=== PATIENT | female | born 2000 | race Caucasian/White ===

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

== ENCOUNTER 2020-04-05 13:48 | Emergency (ER) | payer OTHER ==
[~2020-04-05] VITALS: Ht 160 cm; Wt 63.2 kg
[~2020-04-05 13:48] MED LIST: IBUP-1022 PO; JUNETAB PO; MACR100C43 PO; MELA3TAB24 PO
--- OUTSIDE RECORDS SUMMARY | 2020-04-05 13:53 | CCD ---
Author Author [facility] Organization [facility] Address Unknown Phone Unavailable Care Team Providers Care Mobile Security Specialist Name Role Phone Escobar, Payalcatracho Arzola RECEIVING INSPECTOR-C Unavailable Unavailabl e Escobar, [facility] Agata Ness RECEIVING INSPECTOR-C Unavailable Unavailabl e Escobar, [facility] Agata Ness RECEIVING INSPECTOR-C Unavailable Unavailabl e Escobar, [facility] Agata ALMANZARP-C Unavailable Unavailabl e Escobar, [facility] Agata Ness LAMANZARP-C Unavailable Unavailabl e Escobar, [facility] Agata Ness RECEIVING INSPECTOR-C Unavailable Unavailabl e Escobar, [facility] Agata Arzola RECEIVING INSPECTOR-C Unavailable Unavailabl e Escobar, [facility] Agata Ness RECEIVING INSPECTOR-C Unavailable Unavailabl e Escobar, [facility] Agata Ness RECEIVING INSPECTOR-C Unavailable Unavailabl e Escobar, [facility] Agata Ness RECEIVING INSPECTOR-C Unavailable Unavailabl e Escobar, [facility] Agata Arzola RECEIVING INSPECTOR-C Unavailable Unavailabl e Escobar, [facility] Agata Arzola RECEIVING INSPECTOR-C Unavailable Unavailabl e Escobar, [facility] Agata Arzola RECEIVING INSPECTOR-C Unavailable Unavailabl e Escobar, [facility] Agata Arzola RECEIVING INSPECTOR-C Unavailable Unavailabl e Escobar, [facility] Agata Arzola RECEIVING INSPECTOR-C Unavailable Unavailabl e Escobar, Vivian Arzola RECEIVING INSPECTOR-C Unavailable Unavailabl e Escobar, Vivian Arzola RECEIVING INSPECTOR-C Unavailable Unavailabl e Escobar, Vivian Arzola RECEIVING INSPECTOR-C Unavailable Unavailabl e Escobar, Vivian Arzola RECEIVING INSPECTOR-C Unavailable Unavailabl e Escobar, Vivian Arzola RECEIVING INSPECTOR-C Unavailable Unavailabl e Escobar, Vivian Arzola RECEIVING INSPECTOR-C Unavailable Unavailabl e Escobar, Vivian Arzola RECEIVING INSPECTOR-C Unavailable Unavailabl e Escobar, Vivian Arzola RECEIVING INSPECTOR-C Unavailable Unavailabl e Escobar, Vivian Arzola RECEIVING INSPECTOR-C Unavailable Unavailabl e Escobar, Vivian Arzola RECEIVING INSPECTOR-C Unavailable Unavailabl e Escobar, Vivian Arzola RECEIVING INSPECTOR-C Unavailable Unavailabl e Escobar, Vivian Arzola RECEIVING INSPECTOR-C Unavailable Unavailabl e Escobar, Vivian Arzola RECEIVING INSPECTOR-C Unavailable Unavailabl e Escobar, Vivian Arzola RECEIVING INSPECTOR-C Unavailable Unavailabl e Escobar, Vivian Arzola RECEIVING INSPECTOR-C Unavailable Unavailabl e Escobar, Vivian Arzola RECEIVING INSPECTOR-C Unavailable Unavailabl e Escobar, Vivian Arzola RECEIVING INSPECTOR-C Unavailable Unavailabl e Re-disclosure Warning The records that you are about to access may contain information from federally-assisted alcohol or drug abuse programs. If such information is present, then the following federally mandated warning applies: This information has been disclosed to you from records protected by federal confidentiality rules (42 CFR part 2). The federal rules prohibit you from making any further disclosure of this information unless further disclosure is expressly permitted by the written consent of the person to whom it pertains or as otherwise permitted by 42 CFR part 2. A general authorization for the release of medical or other information is NOT sufficient for this purpose. The Federal rules restrict any use of the information to criminally investigate or prosecute any alcohol or drug abuse patient.The records that you are about to access may contain highly sensitive health information, the redisclosure of which is protected by Article 27-F of the [facility] Public Health law. If you continue you may have access to information: Regarding HIV / AIDS; Provided by facilities licensed or operated by the [facility] Office of Mental Health; or Provided by the [facility] Office for People With Developmental Disabilities. If such information is present, then the following [facility] mandated warning applies: This information has been disclosed to you from confidential records which are protected by state law. State law prohibits you from making any further disclosure of this information without the specific written consent of the person to whom it pertains, or as otherwise permitted by law. Any unauthorized further disclosure in violation of state law may result in a fine or prison sentence or both. A general authorization for the release of medical or other information is NOT sufficient authorization for further disc losure. Encounters Encounter Providers Location Date Indications Data Source(s ) Outpatient Attender: Ness PIZARRO 09/08/2019 11:35:0 0 AM [facility] Outpatient 03/08/2019 07:55:00 AM EST [facility] Medications Medication Brand Name Start Date Product Form Dose Route Admi nistrative Instructions Pharmacy Instructions Status Indications Reaction Description Data Source(s) 600 mg 02/23/2019 12:00:00 AM EST tablet 30 TAKE 1 TABLET BY MOUTH THREE TIMES A DAY FOR PAIN WITH FOOD TAKE 1 TABLET BY MOUTH THREE TIMES A DAY FOR PAIN WITH FOOD SOLD: 02/23/2019 [facility] 100 mg 02/23/2019 12:00:00 AM EST capsule 14 TAKE 1 CAPSULE BY MOUTH TWO TIMES A DAY TAKE 1 CAPSULE BY MOUTH TWO TIMES A DAY SOLD: 02/23/2019 [facility] Insurance Providers Payer name Policy type / Coverage type Policy ID Covered libertarian ID Covered libertarian's relationship to ross Policy Ross Plan Information [facility] [id number] SP [id number] BILL CARE MEDICAID [id number] S [id number] BILL CARE MEDICAID [id number] S [id number] O UNAVAILABLE UNAVAILA BLE ANSI-Commercial [id number] Problems, Conditions, and Diagnoses Code Display Name Description Problem Type Effective Dates Data Source(s) Z11.59 Encounter for screening for other viral diseases ENCOUNTER FOR SCREENING FOR OTHER VIRAL DISEASES Diagnosis 09/08/2019 11:35:00 AM EDT [facility] Results ID Date Data Source [id number] 12/20/2019 12:00:00 AM EDT [facility] Name Value Range Interpretation Code Description Data Keila rce(s) Supporting Document(s) SARS coronavirus 2 RNA [Presence] in Res piratory specimen by MARCO ANTONIO with probe detection [facility] and reported by [employer]. ID Date Data Source [id number] 09/10/2019 10:06:00 AM EDT [facility] Name Value Range Interpretation Code Description Data Keila rce(s) Supporting Document(s) SARS-CoV-2, MARCO ANTONIO Not Detected Not Detected [facility] Testing was performed using the yayo(R) SARS-CoV-2 test.This test was developed and its performance characteristics determinedby [employer]. This test has not been FDA cleared orapproved. This test has been authorized by FDA under an Emergency UseAuthorization (EUA). This test is only authorized for the duration oftime the declaration that circumstances exist justifying theauthorization of the emergency use of in vitro diagnostic tests fordetection of SARS-CoV-2 virus and/or diagnosis of COVID-19 infectionunder section 564(b)(1) of the Act, 21 U.S.C. 360bbb-3(b)(1), unlessthe authorization is terminated or revoked sooner.When diagnostic testing is negative, the possibility of a falsenegative result should be considered in the context of a patient'srecent exposures and the presence of clinical signs and symptomsconsistent with COVID-19. An individual without symptoms of COVID-19and who is not shedding SARS-CoV-2 virus would expect to have anegative (not detected) result in this assay. ID Date Data Source [id number] 09/08/2019 09:00:00 AM EDT [facility] Name Value Range Interpretation Code Description Data Keila rce(s) Supporting Document(s) SARS CORONAVIRUS 2 RNA [facility] This lab was ordered by [facility] nd reported by [employer]. Procedure
[2020-04-05] MEDS ORDERED: MULTTAB20 PO (14:15)
--- OUTSIDE RECORDS SUMMARY | 2020-04-05 15:47 | CCD ---
Author Author [facility] Organization [facility] Address Unknown Phone Unavailable Care Team Providers Care Student Support Counselor Name Role Phone Escobar, Payalcatracho Arzola LIGHTING ADVISER-C Unavailable Unavailabl e [facility], [facility] Agata Ness LIGHTING ADVISER-C Unavailable Unavailabl e Escobar, [facility] Agata Ness LIGHTING ADVISER-C Unavailable Unavailabl e Escobar, [facility] Agata ALMANZARP-C Unavailable Unavailabl e Escobar, [facility] Agata Ness ALMANZARP-C Unavailable Unavailabl e Escobar, [facility] Agata Ness LIGHTING ADVISER-C Unavailable Unavailabl e Escobar, [facility] Agata Arzola LIGHTING ADVISER-C Unavailable Unavailabl e Escobar, [facility] Agata Ness LIGHTING ADVISER-C Unavailable Unavailabl e Escobar, [facility] Agata Ness LIGHTING ADVISER-C Unavailable Unavailabl e Escobar, [facility] Agata Ness LIGHTING ADVISER-C Unavailable Unavailabl e Escobar, [facility] Agata Arzola LIGHTING ADVISER-C Unavailable Unavailabl e Escobar, [facility] Agata Arzola LIGHTING ADVISER-C Unavailable Unavailabl e Escobar, [facility] Agata Arzola LIGHTING ADVISER-C Unavailable Unavailabl e Escobar, [facility] Agata Arzola LIGHTING ADVISER-C Unavailable Unavailabl e Escobar, [facility] Agata Arzola LIGHTING ADVISER-C Unavailable Unavailabl e Escobar, Vivian Arzola LIGHTING ADVISER-C Unavailable Unavailabl e Escobar, Vivian Arzola LIGHTING ADVISER-C Unavailable Unavailabl e Escobar, Vivian Arzola LIGHTING ADVISER-C Unavailable Unavailabl e Escobar, Vivian Arzola LIGHTING ADVISER-C Unavailable Unavailabl e Escobar, Vivian Arzola LIGHTING ADVISER-C Unavailable Unavailabl e Escobar, Vivian Arzola LIGHTING ADVISER-C Unavailable Unavailabl e Escobar, Vivian Arzola LIGHTING ADVISER-C Unavailable Unavailabl e Escobar, Vivian Arzola LIGHTING ADVISER-C Unavailable Unavailabl e Escobar, Vivian Arzola LIGHTING ADVISER-C Unavailable Unavailabl e Escobar, Vivian Arzola LIGHTING ADVISER-C Unavailable Unavailabl e Escobar, Vivian Arzola LIGHTING ADVISER-C Unavailable Unavailabl e Escobar, Vivian Arzola LIGHTING ADVISER-C Unavailable Unavailabl e Escobar, Vivian Arzola LIGHTING ADVISER-C Unavailable Unavailabl e Escobar, Vivian Arzola LIGHTING ADVISER-C Unavailable Unavailabl e Escobar, Vivian Arzola LIGHTING ADVISER-C Unavailable Unavailabl e Escobar, Vivian Arzola LIGHTING ADVISER-C Unavailable Unavailabl e Escobar, Vivian Arzola LIGHTING ADVISER-C Unavailable Unavailabl e Re-disclosure Warning The records [...] is protected by Article 27-F of the [facility] Public Health law. If you continue you may have access to information: Regarding HIV / AIDS; Provided by facilities licensed or operated by the [facility] Office of Mental Health; or Provided by the [facility] Office for People With Developmental Disabilities. If such information is present, then the following [facility] mandated warning applies: This information has been [...] law may result in a fine or mcfp sentence or both. A general authorization for the release of medical or other information is NOT sufficient authorization for further disc losure. Encounters Encounter Providers Location Date Indications Data Source(s ) Outpatient Attender: Ness ALMANZARPAldo 09/08/2019 11:35:0 0 AM [facility] Outpatient 03/08/2019 07:55:00 AM EST [facility] relationship to ross Policy Ross Plan Information BILL [id number] SP [id number] [facility] [id number] SP [id number] BILL CARE MEDICAID [id number] S [id number] BILL CARE MEDICAID [id number] S [id number] O UNAVAILABLE UNAVAILA BLE ANSI-Commercial [id number] Problems, Conditions, and Diagnoses Code Display Name Description Problem Type Effective Dates Data Source(s) Z11.59 Encounter for screening for other viral diseases ENCOUNTER FOR SCREENING FOR OTHER VIRAL DISEASES Diagnosis 09/08/2019 11:35:00 AM EDT [facility] Results ID Date Data Source [id number] 12/20/2019 12:00:00 AM EDT [facility] Name Value Range Interpretation Code Description Data Keila rce(s) Supporting Document(s) SARS coronavirus 2 RNA [Presence] in Res piratory specimen by MARCO ANTONIO with probe detection [facility] This lab was ordered by Onesimo Brown and reported by [employer]. ID Date Data Source [id number] 09/10/2019 10:06:00 AM EDT [facility] Name Value Range Interpretation Code Description Data Keila rce(s) Supporting Document(s) SARS-CoV-2, MARCO ANTONIO Not Detected Not Detected [facility] Testing was performed using the yayo(R) SARS-CoV-2 test.This test was developed and its performance characteristics determinedby [employer]. This test has not been FDA cleared [...] in this assay. ID Date Data Source [id number] 09/08/2019 09:00:00 AM EDT [facility] Name Value Range Interpretation Code Description Data Keila rce(s) Supporting Document(s) SARS CORONAVIRUS 2 RNA [facility] This lab was ordered by [facility] nd reported by [employer]. Procedure
[2020-04-05] MEDS ORDERED: COLA100C5 PO (16:13)
[2020-04-05] MEDS ORDERED: PROC2.5C3 PR (16:13)
[2020-04-05 16:23] VITALS: BP 107/69
== END 2020-04-05 16:25 | disposition home or self-care (01) ==
LOC: M ED 13:48
DX: O22.40 Hemorrhoids in pregnancy, unspecified trimester (principal); Z91.040 Latex allergy status; Z79.899 Other long term (current) drug therapy

== ENCOUNTER → 2020-04-25 | Outpatient (REF) | payer OTHER, MEDICAID ==
[~2020-04-25] MED LIST changes: +COLA100C5 PO; +MULTTAB20 PO; +PROC2.5C3 PR
[2020-04-25 18:10] LABS: HEMATOCRIT 39.3 % (36.0-47.0); HEMOGLOBIN 13.3 g/dl (12.0-15.5); MEAN CORPUSCULAR HEMOGLOBIN 29.4 pg (27.0-33.0); MEAN CORPUSCULAR HGB CONC 33.8 g/dl (32.0-36.5); MEAN CORPUSCULAR VOLUME 86.9 fl (80.0-96.0); PLATELET COUNT, AUTOMATED 277 10^3/uL (150-450); RED BLOOD COUNT 4.52 10^6/uL (4.00-5.40); WHITE BLOOD COUNT 9.7 10^3/uL (4.0-10.0)
[2020-04-25 19:16] LABS: HCG, SERUM QUANTITATIVE 46168 MIU/ML
[2020-04-25 19:26] LABS: HEPATITIS C VIRUS ABY INDEX 0.2 INDEX (<0.8); HIV 1&2 SCREEN CENTAUR NEGATIVE (NEGATIVE)
== END ==
LOC: M LAB REF 16:28
PROVIDERS: ATTEND Advanced Practice Midwife
DX: O36.80X0 Pregnancy with inconclusive fetal viability, not applicable or unspecified (principal)

== ENCOUNTER → 2020-05-01 | Outpatient (CLI) | payer OTHER ==
--- NOTE | 2020-05-02 04:02 | REP ---
INDICATION: PREG DATING VIABILITY COMPARISON: None. FINDINGS: Single live early intrauterine is appreciated. Gestational sac with yolk sac and pole identified. [place]-rump length of 14 mm corresponds to 7 weeks 5 days gestational age with estimated date of delivery 12/13/2020. heart rate equals 126 beats per minute. No gross abnormalities are identified. IMPRESSION: Single live early intrauterine at 7 weeks 5 days gestational age. Complete anatomical assessment should be performed and 19-20 weeks. <Electronically signed by Bubba Burciaga > 05/02/20 [id number]
== END ==
LOC: M RAD 14:31
PROVIDERS: ATTEND Advanced Practice Midwife
DX: O36.80X0 Pregnancy with inconclusive fetal viability, not applicable or unspecified (principal)

== ENCOUNTER 2020-05-10 18:54 | Emergency (ER) | payer OTHER ==
[~2020-05-10] VITALS: Ht 160 cm; Wt 64.2 kg
--- OUTSIDE RECORDS SUMMARY | 2020-05-10 18:59 | CCD ---
Author Author [facility] Organization [facility] Address Unknown Phone Unavailable Care Team Providers Care Gel Coater Name Role Phone Escobar, Payalcatracho Arzola BUSINESS DEVELOPMENT ANALYST-C Unavailable Unavailabl e Escobar, [facility] Agata Ness BUSINESS DEVELOPMENT ANALYST-C Unavailable Unavailabl e Escobar, [facility] Agata Ness BUSINESS DEVELOPMENT ANALYST-C Unavailable Unavailabl e Escobar, [facility] Agata ALMANZARP-C Unavailable Unavailabl e Escobar, [facility] Agata Ness ALMANZARP-C Unavailable Unavailabl e Escobar, [facility] Agata Ness BUSINESS DEVELOPMENT ANALYST-C Unavailable Unavailabl e Escobar, [facility] Agata Arzola BUSINESS DEVELOPMENT ANALYST-C Unavailable Unavailabl e Escobar, [facility] Agata Ness BUSINESS DEVELOPMENT ANALYST-C Unavailable Unavailabl e Escobar, [facility] Agata Ness BUSINESS DEVELOPMENT ANALYST-C Unavailable Unavailabl e Escobar, [facility] Agata Ness BUSINESS DEVELOPMENT ANALYST-C Unavailable Unavailabl e Escobar, [facility] Agata Arzola BUSINESS DEVELOPMENT ANALYST-C Unavailable Unavailabl e Escobar, [facility] Agata Arzola BUSINESS DEVELOPMENT ANALYST-C Unavailable Unavailabl e Escobar, [facility] Agata Arzola BUSINESS DEVELOPMENT ANALYST-C Unavailable Unavailabl e Escobar, [facility] Agata Arzola BUSINESS DEVELOPMENT ANALYST-C Unavailable Unavailabl e Escobar, [facility] Agata Arzola BUSINESS DEVELOPMENT ANALYST-C Unavailable Unavailabl e Escobar, Vivian Arzola BUSINESS DEVELOPMENT ANALYST-C Unavailable Unavailabl e Escobar, Vivian Arzola BUSINESS DEVELOPMENT ANALYST-C Unavailable Unavailabl e Escobar, Vivian Arzola BUSINESS DEVELOPMENT ANALYST-C Unavailable Unavailabl e Escobar, Vivian Arzola BUSINESS DEVELOPMENT ANALYST-C Unavailable Unavailabl e Escobar, Vivian Arzola BUSINESS DEVELOPMENT ANALYST-C Unavailable Unavailabl e Escobar, Vivian Arzola BUSINESS DEVELOPMENT ANALYST-C Unavailable Unavailabl e Escobar, Vivian Arzola BUSINESS DEVELOPMENT ANALYST-C Unavailable Unavailabl e Escobar, Vivian Arzola BUSINESS DEVELOPMENT ANALYST-C Unavailable Unavailabl e Escobar, Vivian Arzola BUSINESS DEVELOPMENT ANALYST-C Unavailable Unavailabl e Escobar, Vivian Arzola BUSINESS DEVELOPMENT ANALYST-C Unavailable Unavailabl e Escobar, Vivian Arzola BUSINESS DEVELOPMENT ANALYST-C Unavailable Unavailabl e Escobar, Vivian Arzola BUSINESS DEVELOPMENT ANALYST-C Unavailable Unavailabl e Escobar, Vivian Arzola BUSINESS DEVELOPMENT ANALYST-C Unavailable Unavailabl e Escobar, Vivian Arzola BUSINESS DEVELOPMENT ANALYST-C Unavailable Unavailabl e Escobar, Vivian Arzola BUSINESS DEVELOPMENT ANALYST-C Unavailable Unavailabl e Escobar, Vivian Arzola BUSINESS DEVELOPMENT ANALYST-C Unavailable Unavailabl e Escobar, Vivian Arzola BUSINESS DEVELOPMENT ANALYST-C Unavailable Unavailabl e Re-disclosure Warning The records [...] is protected by Article 27-F of the [facility] Public Health law. If you continue you may have access to information: Regarding HIV / AIDS; Provided by facilities licensed or operated by the [facility] Office of Mental Health; or Provided by the [facility] Office for People With Developmental Disabilities. If such information is present, then the following [facility] mandated warning applies: This information has been [...] Indications Data Source(s ) Outpatient Attender: Ness Escobar PIZARRO 09/08/2019 11:35:0 0 AM [facility] Insurance Providers Payer name Policy type / Coverage type Policy ID Covered republican ID Covered republican's relationship to ross Policy Ross Plan Information BILL [id number] SP [id number] SP [id number] [employer] [id number] SP [id number] BILL CARE MEDICAID [id number] S [id number] BILL CARE MEDICAID [id number] S [id number] O UNAVAILABLE UNAVAILA BLE ANSI-Commercial [id number] Problems, Conditions, and Diagnoses Code Display Name Description Problem Type Effective Dates Data Source(s) Z11.59 Encounter for screening for other viral diseases ENCOUNTER FOR SCREENING FOR OTHER VIRAL DISEASES Diagnosis 09/08/2019 11:35:00 AM EDT [facility] Results ID Date Data Source [id number] 12/20/2019 12:00:00 AM EDT [facility] Name Value Range Interpretation Code Description Data Keila rce(s) Supporting Document(s) SARS coronavirus 2 RNA [Presence] in Res piratory specimen by MARCO ANTONIO with probe detection [facility] This lab was ordered by Onesimo Brown and reported by [facility]. ID Date Data Source [id number] 09/10/2019 10:06:00 AM EDT [facility] Name Value Range Interpretation Code Description Data Keila rce(s) Supporting Document(s) SARS-CoV-2, MARCO ANTONIO Not Detected Not Detected [facility] Testing was performed using the yayo(R) SARS-CoV-2 test.This test was developed and its performance characteristics determinedby [facility]. This test has not been FDA cleared [...] in this assay. ID Date Data Source [id number] 09/08/2019 09:00:00 AM EDT [facility] Name Value Range Interpretation Code Description Data Keila rce(s) Supporting Document(s) SARS CORONAVIRUS 2 RNA [facility] This lab was ordered by [facility] nd reported by [facility] [employer]. Procedure
[2020-05-10 20:28] LABS: BASO # 0.1 10^3/uL (0.0-0.2); BASO % 0.5 % (0.0-1.0); EOS # 0.3 10^3/uL (0.0-0.5); EOS % 2.1 % (0.0-3.0); HEMATOCRIT 36.2 % (36.0-47.0); HEMOGLOBIN 12.6 g/dl (12.0-15.5); LYMPH # 1.7 10^3/uL (1.5-5.0); LYMPH % 12.9 % (24.0-44.0); MEAN CORPUSCULAR HEMOGLOBIN 30.1 pg (27.0-33.0); MEAN CORPUSCULAR HGB CONC 34.8 g/dl (32.0-36.5); MEAN CORPUSCULAR VOLUME 86.6 fl (80.0-96.0); MONO # 0.9 10^3/uL (0.0-0.8); MONO % 6.8 % (2.0-8.0); NEUTROPHILS # 10.2 10^3/uL (1.5-8.5); NEUTROPHILS % 77.3 % (36.0-66.0); PLATELET COUNT, AUTOMATED 232 10^3/uL (150-450); RED BLOOD COUNT 4.18 10^6/uL (4.00-5.40); WHITE BLOOD COUNT 13.2 10^3/uL (4.0-10.0)
--- OUTSIDE RECORDS SUMMARY | 2020-05-10 20:53 | CCD ---
Author Author [facility] Organization [facility] Address Unknown Phone Unavailable Care Team Providers Care Lands Resource Manager Name Role Phone Escobar, Payalcatracho Arzola EAP CONSULTANT-C Unavailable Unavailabl e [facility], [facility] Agata Ness EAP CONSULTANT-C Unavailable Unavailabl e Escobar, [facility] Agata Ness EAP CONSULTANT-C Unavailable Unavailabl e Escobar, [facility] Agata ALMANZARP-C Unavailable Unavailabl e Escobar, [facility] Agata Ness ALMANZARP-C Unavailable Unavailabl e Escobar, [facility] Agata Ness EAP CONSULTANT-C Unavailable Unavailabl e Escobar, [facility] Agata Arzola EAP CONSULTANT-C Unavailable Unavailabl e Escobar, [facility] Agata Ness EAP CONSULTANT-C Unavailable Unavailabl e Escobar, [facility] Agata Ness EAP CONSULTANT-C Unavailable Unavailabl e Escobar, [facility] Agata Ness EAP CONSULTANT-C Unavailable Unavailabl e Escobar, [facility] Agata Arzola EAP CONSULTANT-C Unavailable Unavailabl e Escobar, [facility] Agata Arzola EAP CONSULTANT-C Unavailable Unavailabl e Escobar, [facility] Agata Arzola EAP CONSULTANT-C Unavailable Unavailabl e Escobar, [facility] Agata Arzola EAP CONSULTANT-C Unavailable Unavailabl e Escobar, [facility] Agata Arzola EAP CONSULTANT-C Unavailable Unavailabl e Escobar, Vivian Arzola EAP CONSULTANT-C Unavailable Unavailabl e Escobar, Vivian Arzola EAP CONSULTANT-C Unavailable Unavailabl e Escobar, Vivian Arzola EAP CONSULTANT-C Unavailable Unavailabl e Escobar, Vivian Arzola EAP CONSULTANT-C Unavailable Unavailabl e Escobar, Vivian Arzola EAP CONSULTANT-C Unavailable Unavailabl e Escobar, Vivian Arzola EAP CONSULTANT-C Unavailable Unavailabl e Escobar, Vivian Arzola EAP CONSULTANT-C Unavailable Unavailabl e Escobar, Vivian Arzola EAP CONSULTANT-C Unavailable Unavailabl e Escobar, Vivian Arzola EAP CONSULTANT-C Unavailable Unavailabl e Escobar, Vivian Arzola EAP CONSULTANT-C Unavailable Unavailabl e Escobar, Vivian Arzola EAP CONSULTANT-C Unavailable Unavailabl e Escobar, Vivian Arzola EAP CONSULTANT-C Unavailable Unavailabl e Escobar, Vivian Arzola EAP CONSULTANT-C Unavailable Unavailabl e Escobar, Vivian Arzola EAP CONSULTANT-C Unavailable Unavailabl e Escobar, Vivian Arzola EAP CONSULTANT-C Unavailable Unavailabl e Escobar, Vivian Arzola EAP CONSULTANT-C Unavailable Unavailabl e Escobar, Vivian Arzola EAP CONSULTANT-C Unavailable Unavailabl e Re-disclosure Warning The records [...] is protected by Article 27-F of the [facility] Public Health law. If you continue you may have access to information: Regarding HIV / AIDS; Provided by facilities licensed or operated by the [facility] Office of Mental Health; or Provided by the [facility] Office for People With Developmental Disabilities. If such information is present, then the following [facility] mandated warning applies: This information has [...] law may result in a fine or care home sentence or both. A general authorization for the release of medical or other information is NOT sufficient authorization for further disc losure. Encounters Encounter Providers Location Date Indications Data Source(s ) Outpatient Attender: Ness Escobar PIZARRO 09/08/2019 11:35:0 0 AM [facility] Insurance Providers Payer name Policy type / Coverage type Policy ID Covered green party ID Covered green party's relationship to ross Policy Ross Plan Information BILL [id number] SP [id number] EMEDNY [id number] SP [id number] NCO EPALS [id number] SP [id number] BILL CARE MEDICAID [id number] S [id number] BILL CARE MEDICAID [id number] S [id number] O UNAVAILABLE UNAVAILA BLE ANSI-Commercial [id number] Problems, Conditions, and Diagnoses Code Display Name Description Problem Type Effective Dates Data Source(s) Z11.59 Encounter for screening for other viral diseases ENCOUNTER FOR SCREENING FOR OTHER VIRAL DISEASES Diagnosis 09/08/2019 11:35:00 AM EDT [facility] Results ID Date Data Source [id number] 12/20/2019 12:00:00 AM EDT [facility] Name Value Range Interpretation Code Description Data Keila rce(s) Supporting Document(s) SARS coronavirus 2 RNA [Presence] in Res piratory specimen by MARCO ANTONIO with probe detection [facility] This lab was ordered by Onesimo Brown and reported by [facility]. ID Date Data Source [id number] 09/10/2019 10:06:00 AM EDT [facility] Name Value Range Interpretation Code Description Data Keila rce(s) Supporting Document(s) SARS-CoV-2, MARCO ANTONIO Not Detected Not Detected [facility] Testing was performed using the yayo(R) SARS-CoV-2 test.This test was developed and its performance characteristics determinedby [facility]. This test has not been FDA [...] in this assay. ID Date Data Source [id number] 09/08/2019 09:00:00 AM EDT [facility] Name Value Range Interpretation Code Description Data Keila rce(s) Supporting Document(s) SARS CORONAVIRUS 2 RNA [facility] This lab was ordered by [facility] nd reported by [id number]. Procedure
--- NOTE | 2020-05-10 20:57 | REPVR ---
PROCEDURE INFORMATION: Exam: US First Trimester, Transabdominal Exam date and time: 05/10/2020 8:26 PM Age: 19 years old Clinical indication: Lmp or gestational age (in weeks): 03/07/2021; Other: Vaginal bleeding; ; Additional info: 9 wks preg vaginal bleeding TECHNIQUE: Imaging protocol: Real-time transabdominal obstetrical ultrasound of the maternal pelvis and a first trimester , less than 14 weeks 0 days, with image documentation. COMPARISON: No relevant prior studies available. FINDINGS: Gestation: Single live intrauterine gestation. Embryonic/ heart rate: cardiac activity is detected at 167 bpm. Placenta: Adjacent subchorionic hemorrhage measuring 1.5 x 0.4 x 1.7 cm. Amniotic fluid: Amniotic fluid is normal for gestational age. BIOMETRY: Gestational age (AUA): Estimated gestational age is 8 weeks and 6 days. Estimated due date (AUA): Estimated date of delivery is 12/14/2020. Tortugas-Rump length: Tortugas-rump length measures 2.2 cm. MATERNAL: Uterus: Unremarkable. Cervix: Unremarkable. Right adnexa: Right ovary measures 2.9 x 2.0 x 2.7 cm. Right ovary appears within normal limits. Left adnexa: Left ovary measures 2.8 x 3.5 x 2.2 cm. Left ovary appears within normal limits. Intraperitoneal space: No intraperitoneal free fluid. IMPRESSION: Single live intrauterine gestation measuring 8 weeks and 6 days with adjacent subchorionic hemorrhage. Electronically signed by: Negrito Montana On 05/10/2020 20:57:25 PM
[2020-05-10 21:09] VITALS: BP 104/70
== END 2020-05-10 21:22 | disposition home or self-care (01) ==
LOC: M ED 18:54
DX: O20.8 Other hemorrhage in early pregnancy (principal); Z3A.09 9 weeks gestation of pregnancy; Z91.040 Latex allergy status

== ENCOUNTER → 2020-05-10 | Outpatient (REF) | payer OTHER | LOC: M LAB REF 17:05 | PROVIDERS: ATTEND Advanced Practice Midwife | DX: Z34.81 Encounter for supervision of other normal pregnancy, first trimester (principal); Z3A.00 Weeks of gestation of pregnancy not specified ==

== ENCOUNTER 2020-06-08 19:46 | Emergency (ER) | payer OTHER ==
[~2020-06-08] VITALS: Ht 162.6 cm; Wt 65.9 kg
--- NOTE | 2020-06-08 21:42 | REPVR ---
PROCEDURE INFORMATION: Exam: US , Limited Exam date and time: 06/08/2020 8:41 PM Age: 19 years old Clinical indication: Other: Abd pain; Gestational age or lmp: 03/07/2020; ; Additional info: Ab pain TECHNIQUE: Imaging protocol: Real-time ultrasound of the maternal uterus with image documentation. Exam focused on the clinical indication. COMPARISON: RENAL US 02/23/2019 9:51 AM FINDINGS: Gestation: The fetus is not completely evaluated during this examination. This was a limited examination to re-evaluate the area of abruption. The patient should have a complete survey at 18-20 weeks for complete evaluation. heart rate: There is good cardiac motion within the fetus at 152 bpm. Placenta: Placenta is anterior and there is no evidence of implantation bleed or abruption on this examination. Amniotic fluid: The amount of amniotic fluid appears within the range of normal. MATERNAL: Cervix: The cervix is 4.3 cm in length. Urinary bladder: There is a small amount of urine in the urinary bladder. Other findings: There is no evidence of adnexal process. IMPRESSION: 1. Signal fetus breech presentation. 2. Placenta anterior with no evidence of implantation bleed or abruption. 3. The fetus cannot be completely evaluated on this examination and therefore a complete survey should be performed at 18-20 weeks gestation. Electronically signed by: Aime Tarango On 06/08/2020 21:42:31 PM
[2020-06-08 21:45] LABS: BASO % 0.3 % (0.0-1.0); EOS # 0.2 10^3/uL (0.0-0.5); EOS % 1.9 % (0.0-3.0); HEMATOCRIT 36.2 % (36.0-47.0); HEMOGLOBIN 12.6 g/dl (12.0-15.5); LYMPH # 2.2 10^3/uL (1.5-5.0); LYMPH % 21.1 % (24.0-44.0); MEAN CORPUSCULAR HEMOGLOBIN 30.2 pg (27.0-33.0); MEAN CORPUSCULAR HGB CONC 34.8 g/dl (32.0-36.5); MEAN CORPUSCULAR VOLUME 86.8 fl (80.0-96.0); MONO # 0.9 10^3/uL (0.0-0.8); MONO % 8.7 % (2.0-8.0); NEUTROPHILS # 6.9 10^3/uL (1.5-8.5); NEUTROPHILS % 67.6 % (36.0-66.0); PLATELET COUNT, AUTOMATED 222 10^3/uL (150-450); RED BLOOD COUNT 4.17 10^6/uL (4.00-5.40); WHITE BLOOD COUNT 10.3 10^3/uL (4.0-10.0)
[2020-06-08 22:14] LABS: ALBUMIN 3.7 GM/DL (3.2-5.2); ALT/SGPT 14 U/L (12-78); BILIRUBIN,DIRECT < 0.1 MG/DL (0.0-0.2); BILIRUBIN,TOTAL 0.2 MG/DL (0.2-1.0); BLOOD UREA NITROGEN 6 MG/DL (7-18); CALCIUM LEVEL 8.9 MG/DL (8.5-10.1); CARBON DIOXIDE LEVEL 29 MEQ/L (21-32); CHLORIDE LEVEL 106 MEQ/L (98-107); CREATININE FOR GFR 0.42 MG/DL (0.55-1.30); GLUCOSE, FASTING 76 MG/DL (70-100); LIPASE 109 U/L (73-393); POTASSIUM SERUM 3.9 MEQ/L (3.5-5.1); SODIUM LEVEL 139 MEQ/L (136-145); TOTAL PROTEIN 6.8 GM/DL (6.4-8.2)
[2020-06-09] MEDS ORDERED: LIDOCAINE 1% SDV 5ML VIAL DILUENT ONE (01:00)
[2020-06-09] MEDS ORDERED: cefTRIAXone SOD 250MG VIAL (J0696 PER 250MG) IM ONE (01:00)
[2020-06-09] MEDS ORDERED: ONDANSETRON 4 MG ORAL DISINTEGRATING TAB PO ONE (01:00)
[2020-06-09] MEDS ORDERED: AZITHROMYCIN 250MG TABLET PO ONE (01:00)
[2020-06-09 01:52] VITALS: BP 121/65
[2020-06-09 02:14] LABS: CHLAMYDIA DNA AMPLIFICATION NEGATIVE (NEGATIVE); GC DNA AMPLIFICATION NEGATIVE (NEGATIVE)
[2020-06-09] MEDS ORDERED: METR1GEL7 PV (02:21)
== END 2020-06-09 02:40 | disposition home or self-care (01) ==
LOC: M ED 19:46
DX: N76.0 Acute vaginitis (principal); Z91.040 Latex allergy status; Z3A.00 Weeks of gestation of pregnancy not specified
CPT/HCPCS: 36415; 76815; 80048; 80076; 81001; 83690; 85025; 87086; 87210; 87661; 96372; 99283; J0696; Q0162

== ENCOUNTER → 2020-07-02 | Outpatient (REF) | payer OTHER ==
[~2020-07-02] MED LIST changes: +METR1GEL7 PV
[2020-07-02 18:21] LABS: HEMATOCRIT 34.9 % (36.0-47.0); HEMOGLOBIN 11.9 g/dl (12.0-15.5); MEAN CORPUSCULAR HEMOGLOBIN 29.7 pg (27.0-33.0); MEAN CORPUSCULAR HGB CONC 34.1 g/dl (32.0-36.5); PLATELET COUNT, AUTOMATED 239 10^3/uL (150-450); RED BLOOD COUNT 4.01 10^6/uL (4.00-5.40); WHITE BLOOD COUNT 10.6 10^3/uL (4.0-10.0)
[2020-07-02 19:41] LABS: FREE THYROXINE INDEX 3.5 % (1.3-4.8); THYROID STIMULATING HORMONE 1.69 uIU/ML (0.463-3.98); THYROXINE (T4) 11.9 UG/DL (6.0-11.6)
== END ==
LOC: M LAB REF 16:25
PROVIDERS: ATTEND Advanced Practice Midwife
DX: Z34.02 Encounter for supervision of normal first pregnancy, second trimester (principal); R55 Syncope and collapse

== ENCOUNTER 2020-07-24 14:07 | Emergency (ER) | payer OTHER ==
[~2020-07-24] VITALS: Ht 162.6 cm; Wt 68.5 kg
[2020-07-24 14:09] VITALS: BP 133/78
[2020-07-24 16:26] LABS: AMORPHOUS SEDIMENT SMALL (NEGATIVE); APPEARANCE, URINE CLOUDY (CLEAR); BACTERIA, URINE AUTO 1+ (NEGATIVE); BILIRUBIN, URINE AUTO NEGATIVE (NEGATIVE); BLOOD, URINE BLOOD NEGATIVE (NEGATIVE); COLOR, URINE YELLOW (YELLOW); GLUCOSE, URINE (UA) AUTO 1+ mg/dL (NEGATIVE); KETONE, URINE AUTO NEGATIVE (NEGATIVE); LEUKOCYTE ESTERASE, URINE AUTO TRACE (NEGATIVE); MUCUS, URINE SMALL (NEGATIVE); NITRITE, URINE AUTO NEGATIVE (NEGATIVE); PROTEIN, URINE AUTO NEGATIVE (NEGATIVE); RBC, URINE AUTO 1 /HPF (0-3); SPECIFIC GRAVITY URINE AUTO 1.013 (1.002-1.035); SQUAMOUS EPITHELIAL CELL UR AU 2 /HPF (0-6); UROBILINOGEN, URINE AUTO 0.2 mg/dL (0.0-2.0); WBC, URINE AUTO 4 /HPF (0-3)
--- NOTE | 2020-07-24 16:27 | REP ---
INDICATION: fall down 8 stairs. COMPARISON: 06/08/2020. TECHNIQUE: Real-time sonographic evaluation of gravid uterus performed. FINDINGS: There is a single living intrauterine gestation. The estimated gestational age is reportedly 27 weeks 3 days, EDC 10/20/2020. position is cephalic. Placenta is anterior and grade 1 with no previa or abruption. heart rate is 130 beats per minute. Amniotic fluid within normal limits, NEVILLE 13.6, normal range 9.5-22.7. SD ratio umbilical artery 3.37, normal 2.14-4.44. RI 0.70, normal 0.56-0.79. Cervix is closed measures 4.1 cm in length. IMPRESSION: Viable intrauterine gestation as above. <Electronically signed by Claudio Chan > 07/24/20 [id number]
[2020-07-24 16:28] LABS: BASO % 0.4 % (0.0-1.0); EOS # 0.1 10^3/uL (0.0-0.5); EOS % 1.3 % (0.0-3.0); HEMOGLOBIN 11.5 g/dl (12.0-15.5); LYMPH # 1.6 10^3/uL (1.5-5.0); LYMPH % 14.6 % (24.0-44.0); MEAN CORPUSCULAR HEMOGLOBIN 30.2 pg (27.0-33.0); MEAN CORPUSCULAR HGB CONC 33.8 g/dl (32.0-36.5); MEAN CORPUSCULAR VOLUME 89.2 fl (80.0-96.0); MONO # 0.8 10^3/uL (0.0-0.8); MONO % 7.4 % (2.0-8.0); NEUTROPHILS # 8.2 10^3/uL (1.5-8.5); NEUTROPHILS % 75.8 % (36.0-66.0); PLATELET COUNT, AUTOMATED 233 10^3/uL (150-450); RED BLOOD COUNT 3.81 10^6/uL (4.00-5.40); WHITE BLOOD COUNT 10.8 10^3/uL (4.0-10.0)
[2020-07-24 16:52] LABS: ALBUMIN 3.1 GM/DL (3.2-5.2); ALT/SGPT 16 U/L (12-78); BILIRUBIN,DIRECT < 0.1 MG/DL (0.0-0.2); BILIRUBIN,TOTAL 0.2 MG/DL (0.2-1.0); BLOOD UREA NITROGEN 6 MG/DL (7-18); CALCIUM LEVEL 9.2 MG/DL (8.5-10.1); CARBON DIOXIDE LEVEL 28 MEQ/L (21-32); CHLORIDE LEVEL 106 MEQ/L (98-107); CREATININE FOR GFR 0.38 MG/DL (0.55-1.30); GLUCOSE, FASTING 78 MG/DL (70-100); LIPASE 93 U/L (73-393); POTASSIUM SERUM 3.7 MEQ/L (3.5-5.1); SODIUM LEVEL 139 MEQ/L (136-145); TOTAL PROTEIN 6.2 GM/DL (6.4-8.2)
== END 2020-07-24 17:36 | disposition home or self-care (01) ==
LOC: M ED 14:07
DX: O9A.212 Injury, poisoning and certain other consequences of external causes complicating pregnancy, second trimester (principal); M54.5 Low back pain; W10.8XXA Fall (on) (from) other stairs and steps, initial encounter; Y92.018 Other place in single-family (private) house as the place of occurrence of the external cause; E61.1 Iron deficiency; Z91.040 Latex allergy status; Z3A.27 27 weeks gestation of pregnancy

== ENCOUNTER → 2020-09-13 | Outpatient (CLI) | payer OTHER ==
[~2020-09-13] MED LIST changes: +PRENTAB9 PO
[2020-09-13 16:23] LABS: HEMATOCRIT 35.6 % (36.0-47.0); HEMOGLOBIN 11.9 g/dl (12.0-15.5); MEAN CORPUSCULAR HEMOGLOBIN 30.3 pg (27.0-33.0); MEAN CORPUSCULAR HGB CONC 33.4 g/dl (32.0-36.5); MEAN CORPUSCULAR VOLUME 90.6 fl (80.0-96.0); PLATELET COUNT, AUTOMATED 225 10^3/uL (150-450); RED BLOOD COUNT 3.93 10^6/uL (4.00-5.40); WHITE BLOOD COUNT 11.8 10^3/uL (4.0-10.0)
== END ==
LOC: M LAB 14:07
PROVIDERS: ATTEND Advanced Practice Midwife
DX: Z34.02 Encounter for supervision of normal first pregnancy, second trimester (principal)

== ENCOUNTER → 2020-09-14 | Outpatient (REF) | payer OTHER, MEDICAID ==
[2020-09-14 17:57] LABS: HYALINE CAST, URINE NONE SEEN /lpf (0-1); SQUAMOUS EPITHELIAL CELL URINE SMALL AMOUNT /hpf (SMALL AMT)
[2020-09-14 17:58] LABS: AMORPHOUS SEDIMENT, URINE MOD AMOUNT (NEGATIVE); BACTERIA, URINE NONE SEEN; MUCUS, URINE SMALL AMOUNT (NEGATIVE)
[2020-09-14 18:00] LABS: WBC, URINE NONE SEEN /hpf (0-3)
== END ==
LOC: M LAB REF 16:40
PROVIDERS: ATTEND Advanced Practice Midwife
DX: R30.0 Dysuria (principal)

== ENCOUNTER → 2020-09-21 | Outpatient (CLI) | payer OTHER ==
[~2020-09-21] MED LIST changes: +ACET500P3 PO; +CEPH500C PO; +LABE100T4 PO
== END ==
LOC: M LAB 07:08
PROVIDERS: ATTEND Advanced Practice Midwife
DX: R73.02 Impaired glucose tolerance (oral) (principal)

== ENCOUNTER → 2020-11-01 | Outpatient (REF) | payer OTHER, MEDICAID ==
[~2020-11-01] MED LIST changes: -ACET500P3 PO; -CEPH500C PO; -LABE100T4 PO
== END ==
LOC: M LAB REF 16:52
PROVIDERS: ATTEND Obstetrics & Gynecology
DX: R30.0 Dysuria (principal)

== ENCOUNTER 2020-11-12 20:40 | Outpatient (CLI) | payer OTHER, MEDICAID ==
[~2020-11-12] VITALS: Ht 160 cm; Wt 87.0 kg
[2020-11-12 21:19] VITALS: BP 126/78
[2020-11-12] MEDS ORDERED: PENICILLIN G POTASSIUM 5 MU VIAL As Ordered ONE (21:42)
[2020-11-12 22:17] VITALS: BP 119/80
[2020-11-12] MEDS ORDERED: LACTATED RINGER'S 1000 ML IV ONE (22:20)
[2020-11-12] MEDS ORDERED: BETAMETHASONE SOLUSPAN 6MG/ML 5ML VIAL (J0702 PER 3MG) IM SCH (22:20)
[2020-11-12] MEDS ORDERED: LR 1,000 ML IV SCH (22:20)
[2020-11-13] VITALS (10 sets, daily range): BP systolic 108–130; BP diastolic 55–72
[2020-11-13] MEDS ORDERED: PROMETHAZINE INJ 25 MG/ML VIAL (J2550) IV ONE (00:10)
[2020-11-13] MEDS ORDERED: BUTORPHANOL 2 MG/ML INJ (J0595) IV ONE (00:10)
[2020-11-13 00:49] LABS: HEMATOCRIT 34.3 % (36.0-47.0); HEMOGLOBIN 11.5 g/dl (12.0-15.5); MEAN CORPUSCULAR HEMOGLOBIN 29.2 pg (27.0-33.0); MEAN CORPUSCULAR HGB CONC 33.5 g/dl (32.0-36.5); MEAN CORPUSCULAR VOLUME 87.1 fl (80.0-96.0); PLATELET COUNT, AUTOMATED 233 10^3/uL (150-450); RED BLOOD COUNT 3.94 10^6/uL (4.00-5.40)
[2020-11-13] MEDS ORDERED: HOME MED LIST COMPLETE! XX SCH (06:00)
[2020-11-13] MEDS ORDERED: BETAMETHASONE SOLUSPAN 6MG/ML 5ML VIAL (J0702 PER 3MG) IM ONE (19:00)
== END 2020-11-13 19:40 | disposition home or self-care (01) ==
LOC: M LDO 20:40
PROVIDERS: ATTEND Advanced Practice Midwife
DX: O60.03 Preterm labor without delivery, third trimester (principal); Z3A.35 35 weeks gestation of pregnancy; Z91.040 Latex allergy status
CPT/HCPCS: 59025; 85027; 86780; 86850; 86900; 86901; 87081; G0378; G0463; J0595; J0702

== ENCOUNTER 2020-11-16 03:42 | Outpatient (CLI) | payer OTHER, MEDICAID ==
[~2020-11-16] VITALS: Ht 160 cm; Wt 88.1 kg
[2020-11-16 03:59] VITALS: BP 129/78
[2020-11-16] MEDS ORDERED: HOME MED LIST COMPLETE! XX SCH (04:20)
[2020-11-16 05:38] VITALS: BP 121/58
[2020-11-16] MEDS ORDERED: LACTATED RINGER'S 1000 ML IV ONE (06:45)
--- NOTE | 2020-11-16 06:46 | IPNPDOC ---
Text Note Date of Service The patient was seen on 11/16/20. NOTE OUtpatient 20yo ESTHELA 12/12/2020. Presents at 36w2d with reports of UC since 4pm. Denies bleeding, LOF. Reports fetus is active. Breathing with UC Cat I tracing. UC 2-4 minutes x 45-60 seconds SVE 2/80/-3, unchanged from Dr Trevino's previous exam UA/C&S ordered IV bolus Reassess. VS,Fishbone, I+O VS, Fishbone, I+O Vital Signs Date Time Temp Pulse Resp B/P (MAP) Pulse Ox O2 Delivery O2 Flow Rate FiO2 11/16/20 05:38 97.9 57 16 121/58 (79) 11/16/20 03:59 98 Room Air Renae Pulido CNM Nov 16, 2020 06:46
[2020-11-16 07:39] LABS: APPEARANCE, URINE CLOUDY (CLEAR); BACTERIA, URINE AUTO 1+ (NEGATIVE); BILIRUBIN, URINE AUTO NEGATIVE (NEGATIVE); BLOOD, URINE BLOOD NEGATIVE (NEGATIVE); COLOR, URINE YELLOW (YELLOW); GLUCOSE, URINE (UA) AUTO NEGATIVE (NEGATIVE); KETONE, URINE AUTO NEGATIVE (NEGATIVE); LEUKOCYTE ESTERASE, URINE AUTO 3+ (NEGATIVE); NITRITE, URINE AUTO NEGATIVE (NEGATIVE); PROTEIN, URINE AUTO NEGATIVE (NEGATIVE); RBC, URINE AUTO 1 /HPF (0-3); SPECIFIC GRAVITY URINE AUTO 1.004 (1.002-1.035); SQUAMOUS EPITHELIAL CELL UR AU 7 /HPF (0-6); UROBILINOGEN, URINE AUTO 0.2 mg/dL (0.0-2.0); WBC, URINE AUTO 8 /HPF (0-3)
[2020-11-16] MEDS ORDERED: ceFAZolin SOD 2 GM in IV 1 EA IV ONE (09:00)
[2020-11-16] MEDS ORDERED: TERBUTALINE SULFATE 1 MG/ML VIAL (J3105) SC ONE (09:20)
[2020-11-16] MEDS ORDERED: CEPH500C PO (10:28)
--- NOTE | 2020-11-16 10:31 | IPNPDOC ---
Text Note Date of Service The patient was seen on 11/16/20. NOTE Outpatient Feeling improved after IV hydration, ancef 2 gm and terbutaline 0.2mg sc Cat I tracing UC now mild, irregular SVE unchanged Discharged home. Continue keflex BID x 7 days. Keep next appt. Warnings reviewed. VS,Fishbone, I+O VS, Fishbone, I+O Vital Signs Date Time Temp Pulse Resp B/P (MAP) Pulse Ox O2 Delivery O2 Flow Rate FiO2 11/16/20 05:38 97.9 57 16 121/58 (79) 11/16/20 03:59 98 Room Air Renae Pulido CNM Nov 16, 2020 10:31
== END 2020-11-16 11:13 | disposition home or self-care (01) ==
LOC: M LDO 03:42
PROVIDERS: ATTEND Specialist
DX: O60.03 Preterm labor without delivery, third trimester (principal); Z3A.36 36 weeks gestation of pregnancy; Z91.040 Latex allergy status
CPT/HCPCS: 59025; 81001; 87086; G0378; G0463; J0690; J3105

== ENCOUNTER 2020-11-20 15:16 | Inpatient (IN) | payer OTHER, MEDICAID ==
[2020-11-20] VITALS (17 sets, daily range): BP systolic 132–179; BP diastolic 67–101
[~2020-11-20] VITALS: Ht 160 cm; Wt 89.6 kg
[~2020-11-20 15:16] MED LIST changes: +CEPH500C PO
[2020-11-20] MEDS ORDERED: ACET500P3 PO (15:44)
--- NOTE | 2020-11-20 18:41 | IPNPDOC ---
Text Note Date of Service The patient was seen on 11/20/20. NOTE Progress note S: 20 yo female at 36 6/7 weeks gestation presents with a gush of fluid at home this morning. She waited several hours before coming to the hospital. She had a small amount of leakage after that. She has had contractions for several days. O: NAD Abd: NT, gravid FHT: Category I toco: Q3-8 minutes, mild to moderate SSE: neg fern, neg Nitrazine, neg pool SVE: 2 cm/80%/-2 vtx bedside ultrasound: vtx, NEVILLE=13 cm A/P 20 yo female at 36 5/7 weeks gestation with No evidence of ROM; Bond mauricio, elevated BP c/w gestational hypertension Plan to admit for delivery see admit note VS,Fishbone, I+O VS, Fishbone, I+O Vital Signs Date Time Temp Pulse Resp B/P (MAP) Pulse Ox O2 Delivery O2 Flow Rate FiO2 11/20/20 17:35 98.0 74 18 133/74 (93) Room Air ANDREW CULP MD Nov 20, 2020 18:41
[2020-11-20 19:35] LABS: CREATININE,RANDOM URINE 22.9 MG/DL; TOTAL PROTEIN,RANDOM URINE 6.8 MG/DL (0.0-12.0)
[2020-11-20 19:50] LABS: HEMATOCRIT 33.3 % (36.0-47.0); HEMOGLOBIN 11.1 g/dl (12.0-15.5); MEAN CORPUSCULAR HGB CONC 33.3 g/dl (32.0-36.5); MEAN CORPUSCULAR VOLUME 86.9 fl (80.0-96.0); PLATELET COUNT, AUTOMATED 205 10^3/uL (150-450); RED BLOOD COUNT 3.83 10^6/uL (4.00-5.40); WHITE BLOOD COUNT 11.3 10^3/uL (4.0-10.0)
[2020-11-20 20:22] LABS: ALT/SGPT 16 U/L (12-78); BILIRUBIN,TOTAL 0.2 MG/DL (0.2-1.0); CREATININE FOR GFR 0.65 MG/DL (0.55-1.30); LDH LACTATE DEHYDROGENASE 166 U/L (84-246); URIC ACID 5.2 MG/DL (2.6-6.0)
--- NOTE | 2020-11-20 20:56 | HPEPDOC ---
Obstetrical History & Physical General Date of Admission Nov 20, 2020 at 20:44 History of Present Illness 20 yo female at 36 6/7 weeks by LMP c/w 7 week ultrasound (EDC=12/12/2020) presents after a gush of fluid at home this morning. She waited to come to the hospital. She had a small amount of leakage after that. Her cont ractions increased in intensity. She has had a headache 5/10 intensity all day. Information Provided By: Patient Age: 20 : 2 Term: 0 Pre-term: 0 Abortions: 1 Livin Care Care: Good Care Dating Final EDC: Dec 12, 2020 Final EDC by: LMP, 1st trimester (US) Antepartum Course Diagnos(e)s Early care with [facility], transfer to [facility] Past Medical History Past Obstetrical History : Past Obstetrical History: Primgravida CCNP History: No pertinent history Past Medical History Medical History none Surgical History: Denies/None Family History Significant Family History: No pertinent family hx Social History Marital Status: Single Family situation: Spouse/partner home * Smoker: non-smoker Allergies Coded Allergies: latex (Verified Allergy, Unknown, 02/23/19) Medications Scheduled Acetaminophen (Tylenol Extra Strength) 500 Mg Powd.pack, 500 MG PO PRN Cephalexin (Cephalexin) 500 Mg Capsule, 500 MG PO BID No.137/Iron/Folic Acd ( Vitamin Tablet) 1 Each Tablet, 1 TAB PO DAILY Physical Examination Physical Examination GENERAL: Alert and oriented times three. BREAST: . ABDOMEN: Gravid and non-tender to touch. FETUS: Is vertex (VTX) by sterile vaginal examination (SVE), fetus is vertex (VTX) by Shad. HEART RATE: Regular rate and rhythm. LUNGS: Clear to auscultation (CTA). EXTREMITIES: No edema. No clonus. Deep tendon reflexes (DTRs) + . Vital Signs/I&O Vital Signs Date Time Temp Pulse Resp B/P (MAP) Pulse Ox O2 Delivery O2 Flow Rate FiO2 11/20/20 20:17 99.2 71 18 139/90 (106) 11/20/20 18:45 Room Air Laboratory Data 24H LABS Laboratory Tests 2 11/20/20 18:59: Urine Random Creatinine 22.9, Urine Random Total Protein 6.8 11/20/20 19:08: Nucleated Red Blood Cells % (auto) 0.0, Uric Acid 5.2, Total Bilirubin 0.2, Aspartate Amino Transf (AST/SGOT) 20, Alanine Aminotransferase (ALT/SGPT) 16, Lactate Dehydrogenase 166 11/20/20 20:48: Serology Scanned Report Hepatitis B Testing CBC/BMP Laboratory Tests 11/20/20 19:08 Pertinent Laboratoy Data Blood Type: O+ Group B Streptococcus: Negative Anatomy Ultrasound Ultrasound Date: Nov 20, 2020 Placenta Previa: No Steroid Therapy Steroid Therapy: No Vaginal Examination Dilation: 2cm Effacement: 80% Station: -2 Cervical Consistency: Soft Cervical Position: Middle Presentation: Cephalic presentation Assessment Variability: Moderate Accelerations: Positive Decelerations: None Tocometer Contractions: Yes Frequency: every 1-5 min. Duration: greater than 60 seconds Strength: palpated as moderate Assessment/Plan Assessment Pt is a 20-year-old (G)2 para (P)0010 at 36+6 weeks by LMP c/w 7-week ultrasound presents to Labor and Delivery With gestational hypertension. 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 Diet: reg. Labs and intravenous (IV) per unit protocol. Appears to be in early labor, may need Pitocin if she doesn't progress .Anticipate normal spontaneous delivery (). C-S as appropriate. ANDREW CULP MD Nov 20, 2020 20:56
[2020-11-20] MEDS ORDERED: LACTATED RINGER'S 1000 ML IV STA (20:57)
[2020-11-20] MEDS ORDERED: BUTORPHANOL 2 MG/ML INJ (J0595) IV ONE (21:00)
[2020-11-20] MEDS ORDERED: PROMETHAZINE INJ 25 MG/ML VIAL (J2550) IV ONE (21:00)
[2020-11-20] MEDS: ACETAMINOPHEN 500 MG TAB PO PRN (21:07)
[2020-11-21] VITALS (56 sets, daily range): BP systolic 121–220; BP diastolic 62–118
[2020-11-21] MEDS ORDERED: OXYTOCIN DRIP 30 UNITS in IV 1 EA IV SCH ×2 (05:20→19:15)
[2020-11-21] MEDS ORDERED: BUTORPHANOL 2 MG/ML INJ (J0595) IV ONE (07:30)
[2020-11-21] MEDS ORDERED: PROMETHAZINE INJ 25 MG/ML VIAL (J2550) IV ONE (07:30)
[2020-11-21] MEDS: LR 1,000 ML IV SCH ×3 (07:49→15:31)
[2020-11-21] MEDS ORDERED: HOME MED LIST COMPLETE! XX SCH (09:00)
[2020-11-21] MEDS ORDERED: REFRIGERATOR IV KEYS XX PRN (10:10)
[2020-11-21] MEDS ORDERED: EPIDURAL/PCA KEYS XX PRN (10:10)
[2020-11-21] MEDS ORDERED: FENTANYL/ROPIVACAINE/NACL BAG 100 ML EPIDURAL SCH (10:10)
[2020-11-21] MEDS ORDERED: ONDANSETRON 4MG/2ML VIAL IV PRN (10:10)
[2020-11-21] MEDS ORDERED: NALOXONE INJ 0.4MG/1ML VIAL (J2310 PER 1MG) IV PRN (10:10)
[2020-11-21] MEDS ORDERED: diphenhydrAMINE 50MG/ML VIAL (J1200) IV PRN (10:10)
[2020-11-21] MEDS ORDERED: EPIDURAL COMMENT XX SCH (10:10)
[2020-11-21] MEDS ORDERED: FENTANYL 2MCG/ML ROPIVACAINE 0.2% IN 0.9% NACL 100ML IVBAG As Ordered ONE (10:12)
[2020-11-21] MEDS ORDERED: MEASLES,MUMPS,RUBELLA VACCINE INJ (MMR-II) (90707) SC SCH (19:15)
[2020-11-21] MEDS ORDERED: DOCUSATE SODIUM 100MG CAPSULE PO PRN (19:15)
[2020-11-21] MEDS ORDERED: RHOGAM 300 MCG (1500 IU) INJ (J2790) IM SCH (19:15)
[2020-11-21] MEDS ORDERED: IBUPROFEN 600MG TAB PO PRN (19:15)
[2020-11-21] MEDS ORDERED: ACETAMINOPHEN TAB 650MG DOSE (2X325MG) PO PRN (19:15)
--- NOTE | 2020-11-21 19:46 | DN ---
DELIVERY NOTE DATE OF DELIVERY: 11/21/2020 TIME OF : 1845 GENDER: Male APGARS: 8 and 9 LACERATIONS: ANESTHESIA: ESTIMATED BLOOD LOSS: 300 mL. COUNTS: Correct and verified. DESCRIPTION OF DELIVERY: Rebecca is a 20-year-old 1, para 1-0-0-1 now who was admitted to labor and delivery with gestational hypertension. Misoprostol and IV Pitocin were used and labor did ensue. She reached complete dilation at 1728. She pushed to a normal spontaneous vaginal delivery of a live male infant in left occiput anterior (KAMILLE) position with restitution to left occiput transverse (LOT) position at 1845. There was a nuchal cord x2 loose that was reduced at the time of delivery. The shoulders delivered spontaneously and the corpus immediately followed. The 's mouth and nares were bulb suctioned and he was placed on the maternal abdomen crying and active. Cord was clamped x2 once pulsations ceased and cut by the father of the baby under my direction. Cord blood was obtained. Spontaneous expulsion of an intact placenta with a three-vessel cord by Ngo mechanism was at 1850. Uterine hemostasis achieved with IV Pitocin rapid infusion and uterine fundal massage. Estimated blood loss 300 mL. Perineum and vagina inspected noted to have bilateral labial lacerations. The right labial laceration was repaired with 3-0 Vicryl Rapide in the usual fashion. The male apgars were 8 and 9. Family is going to name him Sylvain. The mom is going to breastfeed and the weight is pending. At the close of delivery, lap counts, needle counts, and instrument counts were correct and verified.
[2020-11-21] MEDS ORDERED: LABETALOL 100MG/20ML VIAL IV STA ×3 (19:50→20:38)
[2020-11-21] MEDS ORDERED: hydrALAZINE 20MG/ML 1ML VIAL (J0360 PER 20MG) IV STA (20:58)
[2020-11-21] MEDS: LABETALOL 200 MG TAB PO SCH (21:00)
[2020-11-21] MEDS ORDERED: hydrALAZINE 20MG/ML 1ML VIAL (J0360 PER 20MG) As Ordered ONE (21:01)
[2020-11-21] MEDS ORDERED: MAG Sulf (L&D) 4 GM/100 ML 4 GM in IV 1 EA IV ONE (22:35)
[2020-11-21] MEDS: MAG Sulf (OBGYN) 20GM/500ML 20,000 MG in IV 1 EA IV SCH (22:35)
[2020-11-22] VITALS (44 sets, daily range): BP systolic 104–174; BP diastolic 56–99
[2020-11-22] MEDS ORDERED: NIFEdipine 10 MG CAP PO ONE (03:45)
[2020-11-22] MEDS: ACETAMINOPHEN 500 MG TAB PO PRN ×2 (05:24→17:15)
[2020-11-22] MEDS: MAG Sulf (OBGYN) 20GM/500ML 20,000 MG in IV 1 EA IV SCH ×2 (07:40→18:45)
[2020-11-22] MEDS: LR 1,000 ML IV SCH ×2 (08:39→21:20)
[2020-11-22] MEDS: LABETALOL 200 MG TAB PO SCH ×2 (09:14→20:24)
[2020-11-22] MEDS: PRENATAL VITAMINS CHEWABLE TABLET PO SCH (09:14)
[2020-11-22] MEDS: IBUPROFEN 800 MG TAB PO PRN ×2 (11:25→22:16)
[2020-11-22] MEDS ORDERED: LABETALOL 100MG/20ML VIAL IV STA (17:00)
--- NOTE | 2020-11-22 20:23 | IPNPDOC ---
Progress Note Date of Service: Nov 22, 2020 Progress Note SUBJECT: Status post . Complicated by preeclampsia with severe features. She has been receiving magnesium sulfate since shortly after delivery. She is tolerating regular diet. Lochia decreasing/minimal. Pain is well-controlled. Denies headache, visual changes, right upper quadrant pain, shortness breath or chest pain. OBJECTIVE: VITAL SIGNS: Intermittently hypertensive/mild range, afebrile. Alert and oriented times three. Abdomen: Fundus firm at U-2. Soft, NTTP. ASSESSMENT: Status post spontaneous vaginal delivery complicated by preeclampsia with severe features, receiving magnesium sulfate. Mildly hypertensive, asymptomatic, afebrile, hemodynamically stable with no evidence of infection. PLAN: Discontinue magnesium sulfate this evening. Remove Rae Continue labetalol p.o., IV antihypertensives as needed Tylenol and Motrin for pain. Continue routine care VS, I&O, 24H, Fishbone Vital Signs/I&O Vital Signs Date Time Temp Pulse Resp B/P (MAP) Pulse Ox O2 Delivery O2 Flow Rate FiO2 11/22/20 18:39 79 143/81 (101) 11/22/20 18:36 98.3 18 11/20/20 18:45 Room Air I&O- Last 24 Hours up to 6 AM 11/22/20 06:00 Intake Total 6363.3 ml Output Total 2640 ml Balance 3723.3 ml AMARJIT HALL DO Nov 22, 2020 20:23
[2020-11-22] MEDS: DIBUCAINE 1% OINTMENT 30GM TOP PRN (22:16)
[2020-11-23 02:00] VITALS: BP 143/81
[2020-11-23] MEDS: ACETAMINOPHEN 500 MG TAB PO PRN ×2 (02:12→08:58)
[2020-11-23] MEDS: IBUPROFEN 800 MG TAB PO PRN ×2 (05:48→18:15)
[2020-11-23 06:00] VITALS: BP 128/78
[2020-11-23] MEDS: PRENATAL VITAMINS CHEWABLE TABLET PO SCH (08:50)
[2020-11-23] MEDS: LABETALOL 200 MG TAB PO SCH ×2 (08:50→20:26)
[2020-11-23 10:16] VITALS: BP 127/73
[2020-11-23] MEDS: LR 1,000 ML IV SCH (10:40)
[2020-11-23] MEDS ORDERED: PERCOCET 5MG/325MG TAB PO ONE (11:30)
--- NOTE | 2020-11-23 11:31 | IPNPDOC ---
Progress Note Date of Service: Nov 23, 2020 Day#: 2 Progress Note SUBJECT: is a -year-old now Para --- status post uncomplicated spont aneous vaginal delivery at -/7 weeks' at approximately [TIME] hours on [DATE] of a [GENDER] pounds ounces ( grams) with post vaginal laceration and repair, doing well day # . She has been ambulating, voiding spontaneously without issue and tolerating regular diet. Breast feeding without issue. Reports lochia is [like a normal period]. Patient is ambulating well. [Reports some cramping with . Denies any pain. Voiding and stooling without difficulty]. OBJECTIVE: VITAL SIGNS: Within normal limits, afebrile. Alert and oriented times three. Breath sounds clear to auscultation. Heart rate: Regular rate and rhythm, no murmurs, rubs or gallops. Abdomen: Fundus firm at U-2. Soft, NTTP. [Minimal] lochia. ASSESSMENT: is a -year-old now Para --- status post uncomplicated spontaneous vaginal delivery after presenting in active labor with spontaneous rupture of membranes (SROM), delivered at hours and -/7 weeks', doing well on day . Vitals within normal limits, afebrile, hemodynamically stable with no evidence of infection. PLAN: 1. Discharge to home today. 2. Tylenol and Motrin for pain. 3. Encourage breast feeding and ambulation. 4. [Minipill] for contraception for now, desires BTL. 5. Routine PP visit in 6 weeks in clinic. 6. Discussed return precautions at length. VS, I&O, 24H, Fishbone Vital Signs/I&O Vital Signs Date Time Temp Pulse Resp B/P (MAP) Pulse Ox O2 Delivery O2 Flow Rate FiO2 11/23/20 10:16 97.3 93 16 127/73 (91) 94 Room Air I&O- Last 24 Hours up to 6 AM 11/23/20 06:00 Intake Total 3557 ml Output Total 5425 ml Balance -1868 ml AMBROSIO PAYAN CNM Nov 23, 2020 11:31
--- NOTE | 2020-11-23 12:26 | REP ---
INDICATION: bilateral flank pain, , Hx of stones. COMPARISON: None. TECHNIQUE: Real-time sonographic evaluation of the kidneys is performed. FINDINGS: Renal cortical echogenicity pattern is normal bilaterally and contours are smooth. There is no evidence of hydronephrosis, cyst, mass, or calculus in either kidney. The right kidney measures 11.9 x 6.3 x 4.7 cm. Left renal dimensions are 12.6 x 5.6 x 5.0 cm. The urinary bladder is unremarkable. Ureteral jets are visualized in the urinary bladder bilaterally with Doppler color evaluation. IMPRESSION: Negative renal ultrasound. <Electronically signed by Claudio Chan > 11/23/20 2888
[2020-11-23 14:00] VITALS: BP 129/86
[2020-11-23 14:56] LABS: HEMATOCRIT 32.9 % (36.0-47.0); HEMOGLOBIN 10.7 g/dl (12.0-15.5); MEAN CORPUSCULAR HEMOGLOBIN 28.8 pg (27.0-33.0); MEAN CORPUSCULAR HGB CONC 32.5 g/dl (32.0-36.5); MEAN CORPUSCULAR VOLUME 88.4 fl (80.0-96.0); PLATELET COUNT, AUTOMATED 235 10^3/uL (150-450); RED BLOOD COUNT 3.72 10^6/uL (4.00-5.40); WHITE BLOOD COUNT 15.1 10^3/uL (4.0-10.0)
[2020-11-23 15:23] LABS: ALT/SGPT 15 U/L (12-78); BILIRUBIN,TOTAL 0.2 MG/DL (0.2-1.0); CREATININE FOR GFR 0.48 MG/DL (0.55-1.30); LDH LACTATE DEHYDROGENASE 246 U/L (84-246); URIC ACID 5.3 MG/DL (2.6-6.0)
[2020-11-23 18:03] VITALS: BP 126/80
[2020-11-23] MEDS ORDERED: SIMETHICONE 80MG CHEW TAB PO PRN (18:30)
[2020-11-23] MEDS ORDERED: MOM 30ML SUSPENSION UDC PO PRN (18:30)
[2020-11-23] MEDS: DOCUSATE SODIUM 100MG CAPSULE PO SCH (21:12)
[2020-11-23 22:00] VITALS: BP 115/63
[2020-11-24] MEDS: ACETAMINOPHEN 500 MG TAB PO PRN (00:49)
[2020-11-24 02:00] VITALS: BP 127/78
[2020-11-24] MEDS: IBUPROFEN 800 MG TAB PO PRN (05:19)
[2020-11-24 05:41] VITALS: BP 109/58
[2020-11-24 09:18] VITALS: BP 129/86
[2020-11-24] MEDS: LABETALOL 200 MG TAB PO SCH (09:18)
[2020-11-24] MEDS: PRENATAL VITAMINS CHEWABLE TABLET PO SCH (09:18)
[2020-11-24] MEDS: DOCUSATE SODIUM 100MG CAPSULE PO SCH (09:18)
[2020-11-24 10:20] VITALS: BP 131/79
[2020-11-24] MEDS ORDERED: LABE100T4 PO (11:13)
[2020-11-24] MEDS: DIBUCAINE 1% OINTMENT 30GM TOP PRN (11:55)
== END 2020-11-24 12:30 | disposition home or self-care (01) | DRG 807 ==
LOC: M LDO 15:16 → M LDI 20:44 → M OBS 11-22 21:55
PROVIDERS: ADMIT Specialist; ATTEND Advanced Practice Midwife
PROC: 10E0XZZ Delivery of Products of Conception, External Approach (ICD-10-PCS; principal; 2020-11-21)
PROC: 0HQ9XZZ Repair Perineum Skin, External Approach (ICD-10-PCS; 2020-11-21)
DX: O13.4 Gestational [pregnancy-induced] hypertension without significant proteinuria, complicating childbirth (principal); Z37.0 Single live birth; Z3A.36 36 weeks gestation of pregnancy; O69.81X0 Labor and delivery complicated by cord around neck, without compression, not applicable or unspecified; O70.0 First degree perineal laceration during delivery

== ENCOUNTER 2021-01-10 09:26 | Emergency (ER) | payer MEDICAID, OTHER ==
[~2021-01-10] VITALS: Ht 162.6 cm; Wt 80.5 kg
[~2021-01-10 09:26] MED LIST changes: +ACET500P3 PO; +LABE100T4 PO
--- OUTSIDE RECORDS SUMMARY | 2021-01-10 09:33 | CCD ---
Author Author [facility] Organization [facility] Address Unknown Phone Unavailable Care Team Providers Care Transition Program Manager Name Role Phone Messi Ahumada Unavailable PROBLEMS Type Condition ICD9-CM Code [id number] Code Onset Dates Condition S tatus W/U Status Risk SNOMED Code Notes Problem Supervision of other normal Z34.80 Ac tive confirm [id number] ALLERGIES Allergen (clinical drug ingredient) Drug/Non Drug Allergy do cumented on EMR Reaction Allergy Type Onset Date Status Latex Latex Unknown Drug Allergy Active ENCOUNTERS from 2000 to 2021-01-02 Encounter Location Date Provider Diagnosis [facility] [facility] [phone] [place] [address] Dec, Messi Ahumada IMMUNIZATIONS No Information SOCIAL HISTORY Tobacco Use: Social History Observation Description Date Details (start date - stop date) Never Smoker Sex Assigned At : Social History Observation Description Sex Assigned At Unknown Domestic Violence: Question Answer Notes Status: No history of abuse Alcohol Screening: Question Answer Notes Did you have a drink containing alcohol in the past year? No Points 0 Interpretation Negative Tobacco Use: Question Answer Notes Are you a: never smoker REASON FOR REFERRAL No Information VITAL SIGNS No information MEDICATIONS Medication SIG (Take, Route, Frequency, Duration) Notes Start Da te End Date Status 1.5-30 MG-MCG 1 tablet Orally Once a day for 21 day(s) Active PROCEDURES No Information RESULTS No Results REASON FOR VISIT verify apt MEDICAL (GENERAL) HISTORY Type Description Date Hospitalization History Childbirth Goals Section No Information Health Concerns No Information MEDICAL EQUIPMENT No Information MENTAL STATUS No Information FUNCTIONAL STATUS No Information ASSESSMENTS No Information PLAN OF TREATMENT Next Appt Details Provider Name:Messi Melton Brandyn, 2021-01-08 0:00:00 AM, [address] [facility], , [place], [address], Provider Name:Vashti Adhikari, 2020-03 01:45:00 PM, [address] [facility], , [place], [address], Insurance Providers Payer Name Payer Address Payer Phone Insured Name Patient Relati onship to Insured Coverage Start Date Coverage End Date NCO ELIGIBILITY PATIENT [place] [address] [id number] [address] [facility] [place] [id number] FELIPE ELLIS
--- OUTSIDE RECORDS SUMMARY | 2021-01-10 09:33 | CCD ---
Author Author [facility] Organization [facility] Address Unknown Phone Unavailable Care Team Providers Care Chair Name Role Phone Messi Ahumada Unavailable PROBLEMS Type Condition ICD9-CM Code TWP04-DN Code Onset Dates Condition S tatus W/U Status Risk SNOMED Code Notes Problem Supervision of other normal Z34.80 Ac tive confirm [id number] ALLERGIES Allergen (clinical drug ingredient) Drug/Non Drug Allergy do cumented on EMR Reaction Allergy Type Onset Date Status Latex Latex Unknown Drug Allergy Active ENCOUNTERS from 2000 to 2021-01-08 Encounter Location Date Provider Diagnosis [facility] [address] [place] [address] [place] [address] Dec, Messi Ahumada IMMUNIZATIONS No Information SOCIAL [...] Orally Once a day for 21 day(s) Not-Taking Effexor XR 37.5 MG 1 capsule with food Orally Once a day for 30 day(s) Dec, Active PROCEDURES No Information RESULTS No Results REASON FOR VISIT NEEDS 6 WK F/U APPT MEDICAL (GENERAL) HISTORY Type Description Date Hospitalization History Childbirth Goals Section No Information Health Concerns No Information MEDICAL EQUIPMENT No Information MENTAL STATUS No Information FUNCTIONAL STATUS No Information ASSESSMENTS No Information PLAN OF TREATMENT Medication Medication Name Sig Start Date Stop Date Effexor XR 37.5 MG 1 capsule with food Orally Once a day fo r 30 day(s) Dec, Next Appt Details Provider Name:Vashti Adhikari, 2020-03 01:45:00 PM, [address] [place] [address] , [place], [address], Provider Name:Messi Ahumada, 2021-02-26 1 1:00:00 AM, [address] [place] [address] , [place], [address], Insurance Providers Payer Name Payer Address Payer Phone Insured Name Patient Relati onship to Insured Coverage Start Date Coverage End Date [address] [phone] [employer] [employer] self
--- OUTSIDE RECORDS SUMMARY | 2021-01-10 09:34 | CCD ---
Author Author [facility] Organization [facility] Address Unknown Phone Unavailable Care Team Providers Care Director Case Name Role Phone Thomas Trevino Unavailable PROBLEMS Type Condition ICD9-CM Code NRZ12-CD Code Onset Dates Condition S tatus W/U Status Risk SNOMED Code Notes Problem Supervision of other normal Z34.80 Ac tive confirm [id number] ALLERGIES No Known Allergies ENCOUNTERS from 2000 to 2020-11-20 Encounter Location Date Provider Diagnosis [facility] [address] [facility] [phone] [place] [address] 07 Nov, 2020 Thomas Trevino IMMUNIZATIONS No Information SOCIAL HISTORY Tobacco Use: Social History Observation Description Date Details (start date - stop date) Never Smoker Sex Assigned At : Social History Observation Description Sex Assigned At Unknown Domestic Violence: Question Answer Notes Status: No history of abuse Tobacco Use: Question Answer Notes Are you a: never smoker REASON FOR REFERRAL No Information VITAL SIGNS No information MEDICATIONS Medication SIG (Take, Route, Frequency, Duration) Notes Start Da te End Date Status 1.5-30 MG-MCG 1 tablet Orally Once a day for 21 day(s) Active PROCEDURES No Information RESULTS No Results REASON FOR VISIT labor Goals Section No Information Health Concerns No Information MEDICAL EQUIPMENT No Information MENTAL STATUS No Information FUNCTIONAL STATUS No Information ASSESSMENTS No Information PLAN OF TREATMENT Next Appt Details Provider Name:Thomas Trevino 2020-11-22 10:30:00 AM, [address] [facility], , [place], [address], Insurance Providers Payer Name Payer Address Payer Phone Insured Name Patient Relati onship to Insured Coverage Start Date Coverage End Date [employer] ELIGIBILITY PATIENT [employer] [address] [id number] A TT MARIE SAENZ [facility] [id number] [place] self
--- OUTSIDE RECORDS SUMMARY | 2021-01-10 09:34 | CCD ---
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 Role Phone Carla Danielle MD Unavailable Unavailable Carla Danielle MD Unavailable Unavailable Carla Danielle MD Unavailable Unavailable Carla Danielle MD Unavailable Unavailable Carla Danielle MD Unavailable Unavailable Carla Danielle MD Unavailable Unavailable Carla Danielle MD Unavailable Unavailable Carla Danielle MD Unavailable Unavailable Carla Danielle MD Unavailable Unavailable Carla Danielle MD Unavailable Unavailable Carla Danielle MD Unavailable Unavailable Carla Danielle MD Unavailable Unavailable Carla Danielle MD Unavailable Unavailable Carla Danielle MD Unavailable Unavailable Carla Danielle MD Unavailable Unavailable Carla Danielle MD Unavailable Unavailable Carla Danielle MD Unavailable Unavailable Carla Danielle MD Unavailable Unavailable Al Mudamgha, A Ali MD Unavailable Unavailable Al Mudamgha, A Ali MD Unavailable Unavailable Al Mudamgha, A Ali MD Unavailable Unavailable Al Mudamgha, A Ali MD Unavailable Unavailable Al Mudamgha, A Ali MD Unavailable Unavailable Al Mudamgha, A Ali MD Unavailable Unavailable Al Mudamgha, A Ali MD Unavailable Unavailable Al Mudamgha, A Ali MD Unavailable Unavailable Al Mudamgha, A Ali MD Unavailable Unavailable Al Mudamgha, A Ali MD Unavailable Unavailable Al Mudamgha, A Ali MD Unavailable Unavailable Al Mudamgha, A Ali MD Unavailable Unavailable Al Mudamgha, A Ali MD Unavailable Unavailable Al Mudamgha, A Ali MD Unavailable Unavailable Al Mudamgha, A Ali MD Unavailable Unavailable Al Mudamgha, A Ali MD Unavailable Unavailable Al Mudamgha, A Ali MD Unavailable Unavailable Al Mudamgha, A Ali MD Unavailable Unavailable Al Mudamgha, A Ali MD Unavailable Unavailable Al Mudamgha, A Ali MD Unavailable Unavailable Al Mudamgha, A Ali MD Unavailable Unavailable Al Mudamgha, A Ali MD Unavailable Unavailable Al Mudamgha, A Ali MD Unavailable Unavailable Al Mudamgha, A Ali MD Unavailable Unavailable Al Mudamgha, A Ali MD Unavailable Unavailable Al Mudamgha, A Ali MD Unavailable Unavailable Al Mudamgha, A Ali MD Unavailable Unavailable Al Mudamgha, A Ali MD Unavailable Unavailable Al Mudamgha, A Ali MD Unavailable Unavailable Al Mudamgha, A Ali MD Unavailable Unavailable Al Mudamgha, A Ali MD Unavailable Unavailable Al Mudamgha, A Ali MD Unavailable Unavailable Al Mudamgha, A Ali MD Unavailable Unavailable Al Mudamgha, A Ali MD Unavailable Unavailable Al Mudamgha, A Ali MD Unavailable Unavailable Al Mudamgha, A Ali MD Unavailable Unavailable Al Mudamgha, A Ali MD Unavailable Unavailable Al Mudamgha, A Ali MD Unavailable Unavailable Al Mudamgha, A Ali MD Unavailable Unavailable Al Mudamgha, A Ali MD Unavailable Unavailable Al Mudamgha, A Ali MD Unavailable Unavailable Al Mudamgha, A Ali MD Unavailable Unavailable Al Mudamgha, A Ali MD Unavailable Unavailable Al Mudamgha, A Ali MD Unavailable Unavailable Al Mudamgha, A Ali MD Unavailable Unavailable Al Mudamgha, A Ali MD Unavailable Unavailable Al Mudamgha, A Ali MD Unavailable Unavailable Al Mudamgha, Carla Dumont MD Unavailable Unavailable Al Mudamgha, Carla Dumont MD Unavailable Unavailable Al Mudamgha, Carla Dumont MD Unavailable Unavailable Al Mudamgha, Carla Dumont MD Unavailable Unavailable Al Mudamgha, Carla Dumont MD Unavailable Unavailable Al Mudamgha, Carla Dumont MD Unavailable Unavailable Al Mudamgha, Carla Dumont MD Unavailable Unavailable Al Mudamgha, Carla Dumont MD Unavailable Unavailable Al Mudamgha, Carla Dumont MD Unavailable Unavailable Al Mudamgha, Carla Dumont MD Unavailable Unavailable Al Mudamgha, Carla Dumont MD Unavailable Unavailable Al Mudamgha, Carla Dumont MD Unavailable Unavailable Al Mudamgha, Carla Dumont MD Unavailable Unavailable Al Mudamgha, Carla Dumont MD Unavailable Unavailable Al Mudamgha, Carla Dumont MD Unavailable Unavailable Al Mudamgha, Carla Dumont MD Unavailable Unavailable Al Mudamgha, Carla Dumont MD Unavailable Unavailable Al Mudamgha, Carla Dumont MD Unavailable Unavailable Al Mudamgha, Carla Dumont MD Unavailable Unavailable Al Mudamgha, Carla Dumont MD Unavailable Unavailable Al Mudamgha, Carla Dumont MD Unavailable Unavailable Al Mudamgha, Carla Dumont MD Unavailable Unavailable Al Mudamgha, Carla Dumont MD Unavailable Unavailable ANTECOL, Baltazar EDWARDS MD Unavailable Unavailable ANTECOL, Baltazar EDWARDS MD Unavailable Unavailable ANTECOL, Baltazar EDWARDS MD Unavailable Unavailable ANTECOL, Baltazar EDWARDS MD Unavailable Unavailable ANTECOL, Baltazar EDWARDS MD Unavailable Unavailable ANTECOL, Baltazar EDWARDS MD Unavailable Unavailable ANTECOL, Baltazar EDWARDS MD Unavailable Unavailable ANTECOL, Baltazar EDWARDS MD Unavailable Unavailable ANTECOL, Baltazar EDWARDS MD Unavailable Unavailable ANTECOL, Baltazar EDWARDS MD Unavailable Unavailable ANTECOL, Baltazar EDWARDS MD Unavailable Unavailable ANTECOL, Baltazar EDWARDS MD Unavailable Unavailable ANTECOL, Baltazar EDWARDS MD Unavailable Unavailable ANTECOL, Baltazar EDWARDS MD Unavailable Unavailable ANTECOL, Baltazar EDWARDS MD Unavailable Unavailable ANTECOL, Baltazar EDWARDS MD Unavailable Unavailable ANTECOL, Baltazar EDWARDS MD Unavailable Unavailable ANTECOL, Baltazar EDWARDS MD Unavailable Unavailable ANTECOL, Baltazar EDWARDS MD Unavailable Unavailable ANTECOL, Baltazar EDWARDS MD Unavailable Unavailable ANTECOL, Baltazar EDWARDS MD Unavailable Unavailable ANTECOL, Baltazar EDWARDS MD Unavailable Unavailable ANTECOL, Baltazar EDWARDS MD Unavailable Unavailable ANTECOL, Baltazar EDWARDS MD Unavailable Unavailable ANTECOL, Baltazar EDWARDS MD Unavailable Unavailable ANTECOL, Baltazar EDWARDS MD Unavailable Unavailable ANTECOL, Baltazar EDWARDS MD Unavailable Unavailable ANTECOL, Baltazar EDWARDS MD Unavailable Unavailable ANTECOL, Baltazar EDWARDS MD Unavailable Unavailable ANTECOL, Baltazar EDWARDS MD Unavailable Unavailable ANTECOL, Baltazar EDWARDS MD Unavailable Unavailable ANTECOL, Baltazar EDWARDS MD Unavailable Unavailable ANTECOL, Baltazar EDWARDS MD Unavailable Unavailable ANTECOL, Baltazar EDWARDS MD Unavailable Unavailable ANTECOL, Baltazar EDWARDS MD Unavailable Unavailable ANTECOL, Baltazar EDWARDS MD Unavailable Unavailable ANTECOL, Baltazar EDWARDS MD Unavailable Unavailable ANTECOL, Baltazar EDWARDS MD Unavailable Unavailable ANTECOL, Baltazar EDWARDS MD Unavailable Unavailable ANTECOL, Baltazar EDWARDS MD Unavailable Unavailable ANTECOL, Baltazar EDWARDS MD Unavailable Unavailable ANTECOL, Baltazar EDWARDS MD Unavailable Unavailable ANTECOL, Baltazar EDWARDS MD Unavailable Unavailable ANTECOL, H JERRY BURR Unavailable Unavailable ANTECOL, Baltazar EDWARDS MD Unavailable Unavailable ANTECOL, Baltazar EDWARDS MD Unavailable Unavailable ANTECOL, H JERRY BURR Unavailable Unavailable ANTECOL, Baltazar JERRY BURR Unavailable Unavailable ANTECOL, Baltazar JERRY BURR Unavailable Unavailable ANTECOL, Baltazar EDWARDS MD Unavailable Unavailable ANTECOL, Baltazar EDWARDS MD Unavailable Unavailable ANTECOL, Baltazar EDWARDS MD Unavailable Unavailable ANTECOL, Baltazar EDWARDS MD Unavailable Unavailable ANTECOL, Baltazar JERRY BURR Unavailable Unavailable Re-disclosure Warning The records that you are [...] is protected by Article 27-F of the [facility] Public Health law. If you continue you may have access to information: Regarding HIV / AIDS; Provided by facilities licensed or operated by the [facility] Office of Mental Health; or Provided by the [facility] Office for People With Developmental Disabilities. If such information is present, then the following [facility] mandated warning applies: This information has [...] law may result in a fine or fpc sentence or both. A general authorization for the release of medical or other information is NOT sufficient authorization for further disc losure. Encounters Encounter Providers Location Date Indications Data Source(s ) Unknown [id number] [facility] [address] 01/08/2021 12:00:00 AM EDT eCW1 ([facility]) Unknown [id number] [facility] [place] [address] 01/01/2021 12:00:00 AM EDT eCW1 ([facility]) Unknown [id number] [facility] [address] [place] [address] 11/20/2020 12:00:00 AM EDT eCW1 ([facility]) Outpatient Attender: Julia Danielle MD [facility] 08/08/2020 12:00:0 0 AM EDT [facility] Outpatient Attender: JERRY RUIZ MD Main Office 07/27/2020 09:00:00 AM EDT [facility] ([facility]) Medications Medication Brand Name Start Date Product Form Dose Route Admi nistrative Instructions Pharmacy Instructions Status Indications Reaction Description Data Source(s) 24 HR venlafaxine 37.5 MG Extended Relea se Oral Capsule [Effexor] Effexor XR 37.5 MG Effexor XR 37.5 MG 01/08/2021 12:00:00 AM EDT 1.0 {cap sule_with_food} active Effexor XR 37.5 MG e CW1 ([facility]) 07/26/2020 12:00:00 AM EDT ORAL active MEDENT ([facility]) Insurance Providers Payer name Policy type / Coverage type Policy ID Covered libertarian ID Covered libertarian's relationship to ross Policy Ross Plan Information FID[employer]IS MEDICAID [id number] Judy 7 [id number] [employer] MEDICAID [id number] BILL [id number] SP [id number] EMEDNY [id number] SP [id number] NCO EPALS [id number] SP [id number] [employer] CARE MEDICAID [id number] S [id number] [employer]ARE MEDICAID [id number] S [id number] O UNAVAILABLE UNAVAILA BLE [facility] MEDICA[facility] [id number] SP [id number] U ANSI-Commercial [id number] [facility] [id number] SP [id number] Problems, Conditions, and Diagnoses Code Display Name Description Problem Type Effective Dates Data Source(s) R55 Syncope and collapse Syncope and collapse Diagnosis 08/08/2020 07:38:08 AM EDT [facility] Z34.80 care Supervision of other normal P roblem 08/07/2020 12:00:00 AM EDT eCW1 ([facility]) R55 Syncope and collapse Syncope and collapse Problem 07/27/2020 12:00:00 AM EDT [facility] ([facility]) R00.2 Palpitations Palpitations Problem 07/27/2020 12:00:00 A M EDT [facility] ([facility]) R06.00 Difficulty breathing Difficulty breathing Problem 07/27/2020 12:00:00 AM EDT [facility] ([facility]) Surgeries/Procedures Procedure Description Date Indications Data Source(s) XTRNL PT ACTIVATED ECG RECORD MONITOR 30 DAYS 12/11/19 12:00:00 AM EDT [facility] ([facility]) XTRNL PT ACTIVTD ECG DWNLD 30 DAYS PHYS R&I 12/10/2020 12:00:00 AM EDT [facility] ([facility]) ECG ROUTINE ECG W/LEAST 12 LDS W/I&R 07/27/2020 12:00: 00 AM EDT [facility] ([facility]) OFFICE OUTPATIENT NEW 45 MINUTES 07/27/2020 12:00:00 A M EDT [facility] ([facility]) Results ID Date Data Source [id number] 08/08/2020 09:33:31 [facility] Name Date of Age Gend*PT [id number] Rebecca Marques 00 19 years F ---PT Location Admission Date/Time Visit ID Attending Provider --- --- --- --- EPI ID CSN Admitting Provider [id number] ---[facility] [id number], [address] (First Floor)[place], [place] [address]Cy.: Fax: Yatient: Rebecca Marques : 2000Date: 08/08/20CARDIOLOGY ELECTROPHYSIOLOGY TELEMEDICINE CONSULTPatient was identified by name and date of .Verbal consent was obtained from the patient for this telemedicine visit.Patient is aware of the risks, limitations, and benefits of a telemedicinevisit.This telemedicine assessment was conducted remotely with the assistance ofmakemoji communication technology. Telephone Only Codes 85223: 21-30 minutesof medical discussion: Telephone Only .Subjective:I was asked by Dr. Rivas to consult on this 19 years female with syncopeHISTORY OF PRESENT ILLNESS: Patient is a 89-year-old female who is currently 22weeks denies history of syncope which started at the age of 12. Raders being in school when she had a syncopal episode. Over the years ceceliahaalvino had intermittent episodes of syncope all occurring in the upright position.Typically these occur when she gets up from sitting to standing. These episodesare associated sometimes with fatigue and a headache as well as nausea.Recently she has had frequent episodes of near syncope especially when she getsout of a car and has had episodes of syncope while in a hot shower. She is nothad any significant injury and there is no evidence of a seizure.Past medical history1. Vasovagal syncopeFAMILY HISTORY: family history includes Cancer in her mother; Hypertension inher father; Schizophrenia in her father.SOCIAL HISTORY: reports that she quit smoking about 16 months ago. She hasnever used smokeless tobacco. She reports that she does not drink alcohol.REVIEW OF SYSTEMS: Constitutional: Positive syncope. Denies fever, chills,weight loss or gain. Eyes: Denies blindness. Cardiovascular: Denies chestpain. Respiratory: Denies shortness of breath and dyspnea on exertion. GI:Denies abdominal pain, nausea or vomiting. : Denies dysuria or hematuria.Musculoskeletal: Negative lower extremity edema. Integumentary: Denies rash.Neurologic: Denies seizures. 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 I had a long discussionwith the patient regarding the physiological basis of the neurally mediatedsyndromes. A detailed dietary history was obtained. The need for adequatehydration was explained. I specifically discussed the importance of increasedwater and salt and if possible to potentially avoid triggers that may exacerbatesymptoms. In addition I discussed medical therapy, specifically ProAmatine andFlorinef. The difference between the 2 drugs with regards to their specificmode of action as well as the varying side effects was explained. At this pointmy recommendation is dietary modification. The patient cannot go on Florinef ormidodrine because she is . In addition I recommended compressionstockings. Postdelivery if the patient remains symptomatic that her primarycare provider could place her on either Florinef or midodrine.I have spent 25 minutes with the patient, counseling/coordinating the patient'scare. I discussed the diagnosis of vasovagal syncope and discussed Managementoption risks and benefitsFollow Up as neededSignature: Julia Paul MD, [facility], RSCardiac Electrophysiology and Arrhythmia ServiceDate: August 08, 2020Time: 9:30 AMThis document or parts of this document, were dictated using eyetokware. A reasonable attempt at proofreading has been made to minimize errors.Please call with any questions or corrections. Name Value Range Interpretation Code Description Data Keila rce(s) Supporting Document(s) ID Date Data Source [id number] 07/24/2020 10:10:00 AM EDAaron CHAPMAN ([facility]) Name Value Range Interpretation Code Description Data Keila rce(s) Supporting Document(s) White Blood Count 10.8 4.0-10.0 [facility] ([facility]) Red Blood Count 3.81 4.00-5.40 [facility] ([facility]) Hematocrit 34.0 [facility] ([facility]) Hemoglobin 11.5 [facility] ([facility]) Platelets 233 150-450 [facility] ([facility] ID Date Data Source [id number] 07/24/2020 10:10:00 AM EDT [facility] ([facility]) Name Value Range Interpretation Code Description Data Keila rce(s) Supporting Document(s) Lipoprotein lipase [Enzymatic activity/volume] in Serum or Plasma 93 [facility] ([facility]) ID Date Data Source [id number] 07/24/2020 10:10:00 AM EDT [facility] ([facility]) Name Value Range Interpretation Code Description Data Keila rce(s) Supporting Document(s) Albumin [Mass/volume] in Serum or Plasma 3.1 [facility] ([facility]) Calcium [Mass/volume] in Serum or Plasma 9.2 [facility] ([facility]) Alanine aminotransferase [Enzymatic activity/volume] in Serum or Pl asma 16 [facility] ([facility]) Chloride [Moles/volume] in Serum or Plasma 106 [facility] ([facility]) Carbon dioxide, total [Moles/volume] in Serum or Plasma 28 [facility] ([facility]) Protein [Mass/volume] in Serum or Plasma 6.2 [facility] ([facility]) Potassium [Moles/volume] in Serum or Plasma 3.7 [facility] ([facility]) Alkaline phosphatase [Enzymatic activity/volume] in Serum or Plasma 6 7 [facility] ([facility]) Aspartate aminotransferase [Enzymatic activity/volume] in Serum or Plasma 12 [facility] ([facility]) Urea nitrogen [Mass/volume] in Serum or Plasma 6 [facility] ([facility]) Sodium 139 [facility] ([facility] Creatinine For GFR 0.38 [facility] ([facility]) Glucose 78 70-100 [facility] ID Date Data Source [id number] 07/02/2020 10:03:00 AM EDT [facility] Name Value Range Interpretation Code Description Data Keila rce(s) Supporting Document(s) Thyroxine (T4) [Mass/volume] in Serum or Plasma 11.9 [facility] ([facility]) Thyroid Stimulating Hormone 1.690 ME DENT ([facility]) Triiodothyronine resin uptake (T3RU) in Serum or Plasma 29 [facility] ([facility]) Thyroxine (T4) free [Mass/volume] in Serum or Plasma 3.5 [facility] ([facility]) ID Date Data Source [id number] 07/02/2020 10:03:00 AM EDT [facility]) Name Value Range Interpretation Code Description Data Keila rce(s) Supporting Document(s) Red Blood Count 4.01 [facility] White Blood Count 10.6 [facility] ([facility]) Hemoglobin 11.9 [facility] ([facility]) Platelets 239 [facility] ([facility]) Hematocrit 34.9 [facility] ([facility]) ID Date Data Source [id number] 06/08/2020 10:06:00 AM EDT [facility] Name Value Range Interpretation Code Description Data Keila rce(s) Supporting Document(s) Albumin [Mass/volume] in Serum or Plasma 3.7 [facility] ([facility]) Alanine aminotransferase [Enzymatic activity/volume] in Serum or Pl asma 14 [facility] ([facility]) Calcium [Mass/volume] in Serum or Plasma 8.9 [facility] ([facility]) Carbon dioxide, total [Moles/volume] in Serum or Plasma 29 [facility] ([facility]) Alkaline phosphatase [Enzymatic activity/volume] in Serum or Plasma 7 5 [facility] ([facility]) Chloride [Moles/volume] in Serum or Plasma 106 [facility] ([facility]) Potassium [Moles/volume] in Serum or Plasma 3.9 [facility] ([facility]) Protein [Mass/volume] in Serum or Plasma 6.8 [facility] ([facility]) Sodium 139 [facility] ([facility] Urea nitrogen [Mass/volume] in Serum or Plasma 6 [facility] ([facility]) Aspartate aminotransferase [Enzymatic activity/volume] in Serum or Plasma 8 [facility] ([facility]) Creatinine For GFR 0.42 [facility] ([facility]) Glucose 76 70-100 [facility] ([facility] ID Date Data Source [id number] 06/08/2020 10:06:00 AM EDT [facility] ([facility]) Name Value Range Interpretation Code Description Data Keila rce(s) Supporting Document(s) Lipoprotein lipase [Enzymatic activity/volume] in Serum or Plasma 109 [facility] ([facility]) ID Date Data Source [id number] 12/20/2019 12:00:00 AM EDT [facility] Name Value Range Interpretation Code Description Data Keila rce(s) Supporting Document(s) SARS coronavirus 2 RNA [Presence] in Res piratory specimen by MARCO ANTONIO with probe detection [facility] This lab was ordered by Onesimo Brown and reported by [employer]. Procedure Social History Code Duration Value Status Description Data Source(s ) Smoking 01/08/2021 12:00:00 AM EDT Never Smoker completed Never S moker eCW1 ([facility]) Smoking 12/31/2020 12:00:00 AM EDT Never Smoker completed Never S moker eCW1 ([facility]) Smoking 08/07/2020 12:00:00 AM EDT Never Smoker completed Never S moker eCW1 ([facility]) Smoking 08/07/2020 12:00:00 AM EDT Former smoker completed Former smoker [facility] Tobacco use and exposure 08/07/2020 12:00:00 AM EDT Never used co mpleted Never used [facility] Alcohol intake 08/07/2020 12:00:00 AM EDT Lifetime non-drinker (finding) completed Lifetime non-drinker (finding) [facility] Smoking 07/27/2020 12:00:00 AM EDT Patient is a former smoker completed Patient is a former smoker [facility] ([facility]) Vital Signs ID Date Data Source UNK Name Value Range Interpretation Code Description Data Source(s) Body weight 150.00 [lb_av] 150.00 [lb_av] GEOFF Walker ([facility]) Body height 64 [in_i] 64 [in_i] ARI ([facility]) 5'4" Body mass index (BMI) [Ratio] 25.7 kg/m2 25.7 k g/m2 [facility] ([facility]) Heart rate 88 /min 88 /min [facility] ([facility]) sitting; 71 laying; 102 standing Systolic blood pressure--sitting 105 mm[Hg] 105 mm[Hg] [facility] ([facility]) Omron large cuff, Ra Diastolic blood pressure--sitting 72 mm[Hg] 72 mm[Hg] [facility] ([facility]) Omron large cuff, Ra Systolic blood pressure--supine 110 mm[Hg] 110 mm[Hg] [facility] [facility] Omron large cuff, Ra Diastolic blood pressure--supine 65 mm[Hg] 65 mm[Hg] MED[facility] ([facility]) Omron large cuff, Ra Systolic blood pressure--standing 105 mm[Hg] 10 5 mm[Hg] MED[facility] ([facility]) Omron large cuff, Ra Diastolic blood pressure--standing 70 mm[Hg] 7 0 mm[Hg] [facility] ([facility]) Omron large cuff, Ra Patient Treatment Plan of Care Planned Activity Planned Date Details Description Data Source (s) 24 HR venlafaxine 37.5 MG Extended Release Oral Capsul e [Effexor] 01/08/2021 12:00:00 AM EDT eCW1 ([facility])
--- OUTSIDE RECORDS SUMMARY | 2021-01-10 09:34 | CCD | Continuity of Care Document ---
Author Author Holter/Event/TelemetryJean-Paul Organization Unknown Address [address] [place] [address] [place] [address] Phone [phone] Care Team Providers Care Senior Administrative Services Officer Name Role Phone Timothy Rosa DO AUTM [phone] Adriana Harris CNM AUTM [phone] Julia Paul MD AUTM [phone] Problems Active Problems Provider Date Difficulty breathing Raghu Peres MD Onset: 07/27/2020 Palpitations Raghu Peres MD Onset: 07/27/2020 Syncope and collapse Raghu Peres MD Onset: 07/27/2020 Social History Type Date Description Comments Sex Unknown ETOH Use Does not consume alcohol Tobacco Use Start: Unknown End: Unknown Patient is a former smoker up to 1/2 ppd then Vape; quit Feb 2020 Smoking Status Reviewed: 07/27/20 Patient is a former smoker up to 1/2 ppd then Vape; quit Feb 2020 Exercise Type/Frequency Does housework 3 times a week Exercise Type/Frequency Does yardwork three time s a week Exercise Type/Frequency Does gardening 3 times a week Exercise Limitations None Allergies, Adverse Reactions, Alerts Active Allergies Criticality Reaction | Severity Comments Date Latex Unable to assess criticality rash, hives 07/26/2020 Medications Active Medications SIG Qnty Indications Ordering Provide r Date Tablets 1 by yareli th every day Unknown 07/26/2020 Immunizations Description No Information Available Vital Signs Date Vital Result Comment 07/27/2020 8:55am Weight 150.00 lb Height 64 inches 5'4" BMI (Body Mass Index) 25.7 kg/m2 Heart Rate 88 /min sitting; 71 laying; 102 standing BP Systolic Sitting 105 mmHg Omron large cuff, Ra BP Diastolic Sitting 72 mmHg Omron large cuff, R a BP Systolic Lying Down 110 mmHg Omron large cuff, Ra BP Diastolic Lying Down 65 mmHg Omron large cuff , Ra BP Systolic Standing 105 mmHg Omron large cuff, R a BP Diastolic Standing 70 mmHg Omron large cuff, Ra Results Test Acquired Date Facility Test Result H/L Range Note CMP 07/24/2020 [facility] - not interfaced (315)- - Albumin Serum/Plasma 3.1 Alt - SGPT 16 Calcium Ser/Plasma Mass/Vol 9.2 Carbon Dioxide Ser/Plasm 28 Chloride Serum/Plasma 106 Alkaline Phosphatase 67 Potassium 3.7 Protein Total 6.2 Sodium 139 Ast - Sgot 12 BUN - Urea Nitrogen 6 Glucose 78 70-100 Creatinine For GFR 0.38 Laboratory test finding 07/24/2020 [facility] - not interf aced (315)- - Lipase 93 CBC without Differential 07/24/2020 [facility] - not inter faced (315)- - White Blood Count 10.8 High 4.0-10.0 Red Blood Count 3.81 Low 4.00-5.40 Platelets 233 150-450 Hemoglobin 11.5 Hematocrit 34.0 CBC without Differential 07/02/2020 [facility] White Blood Count 10.6 Red Blood Count 4.01 Platelets 239 Hemoglobin 11.9 Hematocrit 34.9 Thyroid Profile 07/02/2020 [facility] T4 Total 11.9 Thyroid Stimulating Hormone 1.690 T3 Uptake 29 T4 Free Thyroxine Mass/Vol 3.5 Procedures Date Code Description Status 12/10/2020 70748 Multi Event Recorder Interpretat ion Completed 12/10/2020 67735 Multi Event Recorder Hookup Comp leted 07/27/2020 08737 Office/Outpatient New Moderate M DM 45-59 Minutes Completed 07/27/2020 28796 ECG 12-Lead Completed Medical Devices Description No Information Available Encounters Type Date Location Provider Dx Diagnosis Office Visit 07/27/2020 9:00a Main Office Raghu Peres MD R55 Syncope and collapse R00.2 Palpitations R06.00 Dyspnea, unspecified Assessments Date Code Description Provider 12/10/2020 R55 Syncope and collapse Holter/Even t/Telemetry 12/10/2020 R00.2 Palpitations Holter/Event/Tel emetry 07/27/2020 R55 Syncope and collapse Raghu cabezas MD 07/27/2020 R00.2 Palpitations Raghu Peres MD 07/27/2020 R06.00 Dyspnea, unspecified Raghu cabezas MD Plan of Treatment 07/27/2020 - Raghu Peres MD* R55 Syncope and collapse* New Xrays:* US Echocardiogram Transthoracic W Doppler And Color Flow, Scheduled: 11/08/20 * Referral:* Julia Paul MD, Cardiac Electrophyslgy * Recommendations:* Event Monitor x 30 days was ordered for further evaluation. Echocardiogram-Doppler was ordered for further evaluation. Patient was referred to microgrinder operator Dr. Julia Paul for consideration of a tilt table test and for his opinion with regards to orthostatic hypotension or POTS. * R00.2 Palpitations* Recommendations:* Event monitor x 30 days. * R06.00 Dyspnea, unspecified* Recommendations:* Further evaluation with an echocardiogram-Doppler. * All * Follow up:* Further follow-up, if any, depending upon results of cardiac testing. Functional Status Functional Condition Comment Date Status Independent with all ADL's Activ e Mental Status Description No Information Available Referrals Refer to Reason for Referral Status Appt Date Raghu Peres MD AUTH EMR-EXPIRES 11/18/20. [place] Created [id number] [facility] [place] [id number] [phone] Julia Paul MD Please evaluate & manage rec urrent orthostatic syncope; consider POTS, tilt table, orthostatic hypotension. Thanks!! Scheduled 08/09/1999 [facility] [address] [place] [address] [place] [address] [phone]
--- OUTSIDE RECORDS SUMMARY | 2021-01-10 11:45 | CCD ---
Author Author [facility] Organization [facility] Address Unknown Phone Unavailable Care Team Providers Care Implementation Architect Name Role Phone Carla Danielle MD Unavailable [...] ANTECOL, Baltazar EDWARDS MD Unavailable Unavailable ANTECOL, Blatazar EDWARDS MD Unavailable Unavailable ANTECOL, Baltazar EDWARDS [...] is protected by Article 27-F of the [facility] Public Health law. If you continue you may have access to information: Regarding HIV / AIDS; Provided by facilities licensed or operated by the [facility] Office of Mental Health; or Provided by the [facility] Office for People With Developmental Disabilities. If such information is present, then the following [facility] mandated warning applies: This information has [...] law may result in a fine or senior living sentence or both. A general authorization for the release of medical or other information is NOT sufficient authorization for further disc losure. Encounters Encounter Providers Location Date Indications Data Source(s ) Unknown [address] [facility] [address] 01/08/2021 12:00:00 AM EDT eCW1 ([facility]) Unknown [address] [facility] [place] [address] 01/01/2021 12:00:00 AM EDT eCW1 ([facility]) Unknown [address] [facility] [place] [address] 11/20/2020 12:00:00 AM EDT eCW1 ([facility]) Outpatient Attender: Julia Danielle MD [email or web address] 08/08/2020 12:00:0 0 AM EDT [facility] Outpatient Attender: JERRY RUIZ MD Main Office 07/27/2020 09:00:00 AM EDT MED[facility] ([facility]) Medications Medication Brand Name Start Date Product Form Dose Route Admi nistrative Instructions Pharmacy Instructions Status Indications Reaction Description Data Source(s) 24 HR venlafaxine 37.5 MG Extended Relea se Oral Capsule [Effexor] Effexor XR 37.5 MG Effexor XR 37.5 MG 01/08/2021 12:00:00 AM EDT 1.0 {cap sule_with_food} active Effexor XR 37.5 MG e CW1 ([facility]) 07/26/2020 12:00:00 AM EDT ORAL active MEDENT ([facility]) Insurance Providers Payer name Policy type / Coverage type Policy ID Covered democrat ID Covered democrat's relationship to ross Policy Ross Plan Information [employer]ELIS MEDICAID [id number] Judy 7 [id number] [employer] MEDICAID [id number] BILL [id number] SP [id number] EMEDNY [id number] SP [id number] NCO EPALS [id number] SP [id number] FIDELIS CARE MEDICAID [id number] S [id number] [employer]IS CARE MEDICAID [id number] S [id number] O UNAVAILABLE UNAVAILA BLE FORMERLY NAMED [facility] [id number] SP [id number] ANSI-Commercial [id number] [facility] MEDICAID [id number] SP [id number] U Problems, Conditions, and Diagnoses Code Display Name Description Problem Type Effective Dates Data Source(s) R55 Syncope and collapse Syncope and collapse Diagnosis 08/08/2020 07:38:08 AM EDT [facility] Z34.80 care Supervision of other normal P roblem 08/07/2020 12:00:00 AM EDT eCW1 ([facility]) R55 Syncope and collapse Syncope and collapse Problem 07/27/2020 12:00:00 AM EDT MEDENT ([facility]) R00.2 Palpitations Palpitations Problem 07/27/2020 12:00:00 A M EDT MEDENT ([facility]) R06.00 Difficulty breathing Difficulty breathing Problem 07/27/2020 12:00:00 AM EDT MEDENT ([facility]) Surgeries/Procedures Procedure Description Date Indications Data Source(s) XTRNL PT ACTIVATED ECG RECORD MONITOR 30 DAYS 12/11/19 12:00:00 AM EDT MEDENT ([facility]) XTRNL PT ACTIVTD ECG DWNLD 30 DAYS PHYS R&I 12/10/2020 12:00:00 AM EDT MEDENT ([facility]) ECG ROUTINE ECG W/LEAST 12 LDS W/I&R 07/27/2020 12:00: 00 AM EDT MEDENT ([facility]) OFFICE OUTPATIENT NEW 45 MINUTES 07/27/2020 12:00:00 A M EDT MEDENT ([facility]) Results ID Date Data Source [id number] 08/08/2020 09:33:31 AM EDT [facility] INFORMATIONPatient MRN Name Date of Age Gend*PT [id number] Rebecca Marques 00 19 years F ---PT Location Admission Date/Time Visit ID Attending Provider --- --- --- --- EPI ID CSN Admitting Provider [id number] ---[facility] [id number] [facility], [address] (First Floor)[place], [place] [address]Xe.: Fax: Xatient: Rebecca Marques : 2000Date: 08/08/20CARDIOLOGY ELECTROPHYSIOLOGY TELEMEDICINE CONSULTPatient was identified by name and date of .Verbal consent was obtained from the patient for this telemedicine visit.Patient is aware of the risks, limitations, and benefits of a telemedicinevisit.This telemedicine assessment was conducted remotely with the assistance ofTrailburning communication technology. Telephone Only Codes 64775: 21-30 minutesof medical discussion: Telephone Only .Subjective:I [...] benefitsFollow Up as neededSignature: Julia Paul MD, [facility], RSCardiac Electrophysiology and Arrhythmia ServiceDate: August 08, 2020Time: 9:30 AMThis document or parts of this document, were dictated using [employer] Systemsware. A reasonable attempt at proofreading has been made to minimize errors.Please call with any questions or corrections. Name Value Range Interpretation Code Description Data Keila rce(s) Supporting Document(s) ID Date Data Source [id number] 07/24/2020 10:10:00 AM EDAaron CHAPMAN ([facility]) Name Value Range Interpretation Code Description Data Keila rce(s) Supporting Document(s) White Blood Count 10.8 4.0-10.0 MED[facility] ([facility]) Red Blood Count 3.81 4.00-5.40 [facility] ([facility]) Hematocrit 34.0 MED[facility] ([facility]) Hemoglobin 11.5 MED[facility] ([facility]) Platelets 233 150-450 [facility] ([facility]) ID Date Data Source [id number] 07/24/2020 10:10:00 AM EDT MED[facility] ([facility]) Name Value Range Interpretation Code Description Data Keila rce(s) Supporting Document(s) Lipoprotein lipase [Enzymatic activity/volume] in Serum or Plasma 93 MEDENT ([facility]) ID Date Data Source [id number] 07/24/2020 10:10:00 AM EDT MED[facility] ([facility]) Name Value Range Interpretation Code Description Data Keila rce(s) Supporting Document(s) Albumin [Mass/volume] in Serum or Plasma 3.1 MED[facility] ([facility]) Calcium [Mass/volume] in Serum or Plasma 9.2 [facility] ([facility]) Alanine aminotransferase [Enzymatic activity/volume] in Serum or Pl asma 16 MED[facility] ([facility]) Chloride [Moles/volume] in Serum or Plasma 106 [facility] ([facility]) Carbon dioxide, total [Moles/volume] in Serum or Plasma 28 [facility] ([facility]) Protein [Mass/volume] in Serum or Plasma 6.2 MED[facility] ([facility]) Potassium [Moles/volume] in Serum or Plasma 3.7 [facility] ([facility]) Alkaline phosphatase [Enzymatic activity/volume] in Serum or Plasma 6 7 MED[facility] ([facility]) Aspartate aminotransferase [Enzymatic activity/volume] in Serum or Plasma 12 [facility] ([facility]) Urea nitrogen [Mass/volume] in Serum or Plasma 6 MED[facility] ([facility]) Sodium 139 [facility] ([facility] Creatinine For GFR 0.38 [facility] ([facility]) Glucose 78 70-100 [facility] ID Date Data Source [id number] 07/02/2020 10:03:00 AM EDT [facility] Name Value Range Interpretation Code Description Data Keila rce(s) Supporting Document(s) Thyroxine (T4) [Mass/volume] in Serum or Plasma 11.9 MEDENT ([facility]) Thyroid Stimulating Hormone 1.690 ME DENT ([facility]) Triiodothyronine resin uptake (T3RU) in Serum or Plasma 29 MEDENT ([facility]) Thyroxine (T4) free [Mass/volume] in Serum or Plasma 3.5 MEDENT ([facility]) ID Date Data Source [id number] 07/02/2020 10:03:00 AM EDT [facility] Name Value Range Interpretation Code Description Data Keila rce(s) Supporting Document(s) Red Blood Count 4.01 [facility] White Blood Count 10.6 [facility] ([facility]) Hemoglobin 11.9 MEDENT ([facility]) Platelets 239 MEDENT ([facility]) Hematocrit 34.9 MEDENT ([facility]) ID Date Data Source [id number] 06/08/2020 10:06:00 AM EDT [facility] Name Value Range Interpretation Code Description Data Keila rce(s) Supporting Document(s) Albumin [Mass/volume] in Serum or Plasma 3.7 MED[facility] ([facility]) Alanine aminotransferase [Enzymatic activity/volume] in Serum or Pl asma 14 MEDENT ([facility]) Calcium [Mass/volume] in Serum or Plasma 8.9 MED[facility] ([facility]) Carbon dioxide, total [Moles/volume] in Serum or Plasma 29 MEDENT ([facility]) Alkaline phosphatase [Enzymatic activity/volume] in Serum or Plasma 7 5 MED[facility] ([facility]) Chloride [Moles/volume] in Serum or Plasma 106 MED[facility] ([facility]) Potassium [Moles/volume] in Serum or Plasma 3.9 MED[facility] ([facility]) Protein [Mass/volume] in Serum or Plasma 6.8 MED[facility] ([facility]) Sodium 139 [facility] Urea nitrogen [Mass/volume] in Serum or Plasma 6 MED[facility] ([facility]) Aspartate aminotransferase [Enzymatic activity/volume] in Serum or Plasma 8 MED[facility] ([facility]) Creatinine For GFR 0.42 MEDENT ([facility]) Glucose 76 70-100 [facility] ([facility] ID Date Data Source [id number] 06/08/2020 10:06:00 AM EDT MEDENT ([facility]) Name Value Range Interpretation Code Description Data Keila rce(s) Supporting Document(s) Lipoprotein lipase [Enzymatic activity/volume] in Serum or Plasma 109 [facility] ([facility]) ID Date Data Source [id number] 12/20/2019 12:00:00 AM EDT [facility] Name Value Range Interpretation Code Description Data Keila rce(s) Supporting Document(s) SARS coronavirus 2 RNA [Presence] in Res piratory specimen by MARCO ANTONIO with probe detection [facility] This lab was ordered by Onesimo Brown and reported by [facility]. Procedure Social History Code Duration Value Status Description Data Source(s ) Smoking 01/08/2021 12:00:00 AM EDT Never Smoker completed Never S moker eCW1 ([facility]) Smoking 12/31/2020 12:00:00 AM EDT Never Smoker completed Never S moker eCW1 ([facility]) Smoking 08/07/2020 12:00:00 AM EDT Never Smoker completed Never S moker eCW1 ([facility]) Smoking 08/07/2020 12:00:00 AM EDT Former smoker completed Former smoker [facility] Tobacco use and exposure 08/07/2020 12:00:00 AM EDT Never used co mpleted Never used [facility] Alcohol intake 08/07/2020 12:00:00 AM EDT Lifetime non-drinker (finding) completed Lifetime non-drinker (finding) [facility] Smoking 07/27/2020 12:00:00 AM EDT Patient is a former smoker completed Patient is a former smoker MEDENT ([facility]) Vital Signs ID Date Data Source UNK Name Value Range Interpretation Code Description Data Source(s) Body weight 150.00 [lb_av] 150.00 [lb_av] GEOFF Walker ([facility]) Body height 64 [in_i] 64 [in_i] [facility]ENT ([facility]) 5'4" Diastolic blood pressure--sitting 72 mm[Hg] 72 mm[Hg] MEDENT ([facility]) Omron large cuff, Ra Body mass index (BMI) [Ratio] 25.7 kg/m2 25.7 k g/m2 MED[facility] ([facility]) Heart rate 88 /min 88 /min MEDENT ([facility]) sitting; 71 laying; 102 standing Systolic blood pressure--supine 110 mm[Hg] 110 mm[Hg] MEDENT ([facility]) Omron large cuff, Ra Systolic blood pressure--sitting 105 mm[Hg] 105 mm[Hg] MEDENT ([facility]) Omron large cuff, Ra Systolic blood pressure--standing 105 mm[Hg] 10 5 mm[Hg] MEDENT ([facility]) Omron large cuff, Ra Diastolic blood pressure--standing 70 mm[Hg] 7 0 mm[Hg] MEDENT ([facility]) Omron large cuff, Ra Diastolic blood pressure--supine 65 mm[Hg] 65 mm[Hg] MEDENT ([facility]) Omron large cuff, Ra Patient Treatment Plan of Care Planned Activity Planned Date Details Description Data Source (s) 24 HR venlafaxine 37.5 MG Extended Release Oral Capsul e [Effexor] 01/08/2021 12:00:00 AM EDT eCW1 ([facility])
--- NOTE | 2021-01-10 12:30 | REP ---
INDICATION: severe left head pain followed by syncope. COMPARISON: None. TECHNIQUE: CT brain performed in the axial plane. Coronal reconstruction images are performed. FINDINGS: The ventricles are normal in size and position.. There is no midline shift or mass effect. Chan-white differentiation is well maintained. There is no acute intracranial hemorrhage or extra-axial fluid collection. Bone window examination is unremarkable. The visualized mastoid air cells and paranasal sinuses are clear. IMPRESSION: Negative noncontrast CT brain. <Electronically signed by Claudio Chan > 01/10/21 [id number]
[2021-01-10 13:18] LABS: BASO % 0.5 % (0.0-1.0); EOS # 0.1 10^3/uL (0.0-0.5); EOS % 1.5 % (0.0-3.0); HEMATOCRIT 44.2 % (36.0-47.0); HEMOGLOBIN 14.5 g/dl (12.0-15.5); LYMPH # 2.2 10^3/uL (1.5-5.0); LYMPH % 26.3 % (24.0-44.0); MEAN CORPUSCULAR HEMOGLOBIN 28.3 pg (27.0-33.0); MEAN CORPUSCULAR HGB CONC 32.8 g/dl (32.0-36.5); MEAN CORPUSCULAR VOLUME 86.3 fl (80.0-96.0); MONO # 0.7 10^3/uL (0.0-0.8); MONO % 8.9 % (2.0-8.0); NEUTROPHILS # 5.1 10^3/uL (1.5-8.5); NEUTROPHILS % 62.6 % (36.0-66.0); PLATELET COUNT, AUTOMATED 282 10^3/uL (150-450); RED BLOOD COUNT 5.12 10^6/uL (4.00-5.40); WHITE BLOOD COUNT 8.2 10^3/uL (4.0-10.0)
[2021-01-10 13:33] LABS: AMPHETAMINES LEVEL URINE NEGATIVE (NEGATIVE); BARBITURATES URINE NEGATIVE (NEGATIVE); BENZODIAZEPINES URINE NEGATIVE (NEGATIVE); CANNABINOIDS URINE NEGATIVE (NEGATIVE); COCAINE METABOLITE URINE NEGATIVE (NEGATIVE); METHADONE URINE NEGATIVE (NEGATIVE); OPIATES URINE NEGATIVE (NEGATIVE); PHENCYCLIDINE URINE NEGATIVE (NEGATIVE)
[2021-01-10 13:45] LABS: BLOOD UREA NITROGEN 12 MG/DL (7-18); CALCIUM LEVEL 9.1 MG/DL (8.5-10.1); CARBON DIOXIDE LEVEL 27 MEQ/L (21-32); CHLORIDE LEVEL 108 MEQ/L (98-107); CK-MB VALUE MASS < 1.0 NG/ML (<3.6); CPK CREATINE PHOSPHOKINASE 146 U/L (26-192); CREATININE FOR GFR 0.71 MG/DL (0.55-1.30); GLUCOSE, FASTING 71 MG/DL (70-100); MAGNESIUM LEVEL 2.1 MG/DL (1.8-2.4); MB/CK RELATIVE INDEX 0.68 (< OR =4); POTASSIUM SERUM 4.8 MEQ/L (3.5-5.1); SODIUM LEVEL 139 MEQ/L (136-145); TROPONIN I < 0.02 NG/ML (< 0.10)
[2021-01-10 14:39] VITALS: BP 103/72
--- NOTE | 2021-01-10 20:23 | ECGEPIP ---
[facility] - ED Test Date: 2021-01-10 Pat Name: FELIPE LANCE Department: Room: - Gender: Female Occupational Health Physician: JAaron : 2000 Requested By: EVA COOLEY PA-C. Order Number: [id number] Reading MD: Anel Quinones Measurements Intervals [place] Rate: 52 P: -14 IL: 140 QRS: 65 QRSD: 86 T: 8 QT: 434 QTc: 403 Interpretive Statements Sinus bradycardia with sinus arrhythmia No prior Electronically Signed on 01-10-2021 20:23:19 EDT by Anel Quinones
== END 2021-01-10 14:42 | disposition home or self-care (01) ==
LOC: M ED 09:26
DX: R55 Syncope and collapse (principal); R51.9 Headache, unspecified; Z91.040 Latex allergy status

== ENCOUNTER 2021-09-02 18:34 | Emergency (ER) | payer OTHER ==
[~2021-09-02] VITALS: Ht 160 cm; Wt 84.5 kg
[2021-09-02] MEDS ORDERED: ACET-683 PO (18:52)
[2021-09-02] MEDS ORDERED: KETOROLAC 30 MG/ML 1ML VIAL IV ONE (21:00)
[2021-09-02] MEDS ORDERED: METOCLOPRAMIDE INJ 10MG/2ML VIAL (J2765 PER 1) IV ONE (21:00)
[2021-09-02] MEDS ORDERED: NS 1,000 ML IV ONE (21:00)
[2021-09-02 21:49] LABS: BASO % 0.5 % (0.0-1.0); EOS # 0.1 10^3/uL (0.0-0.5); EOS % 1.8 % (0.0-3.0); HEMATOCRIT 43.2 % (36.0-47.0); HEMOGLOBIN 14.5 g/dl (12.0-15.5); LYMPH # 1.1 10^3/uL (1.5-5.0); LYMPH % 25.3 % (24.0-44.0); MEAN CORPUSCULAR HEMOGLOBIN 28.9 pg (27.0-33.0); MEAN CORPUSCULAR HGB CONC 33.6 g/dl (32.0-36.5); MEAN CORPUSCULAR VOLUME 86.2 fl (80.0-96.0); MONO # 0.5 10^3/uL (0.0-0.8); MONO % 11.8 % (2.0-8.0); NEUTROPHILS # 2.6 10^3/uL (1.5-8.5); NEUTROPHILS % 60.4 % (36.0-66.0); PLATELET COUNT, AUTOMATED 192 10^3/uL (150-450); RED BLOOD COUNT 5.01 10^6/uL (4.00-5.40); WHITE BLOOD COUNT 4.3 10^3/uL (4.0-10.0)
[2021-09-02 22:02] LABS: BLOOD UREA NITROGEN 6 MG/DL (7-18); C REACTIVE PROTEIN QUANTITATIV 1.27 MG/DL (0.00-0.30); CALCIUM LEVEL 9.2 MG/DL (8.5-10.1); CARBON DIOXIDE LEVEL 26 MEQ/L (21-32); CHLORIDE LEVEL 108 MEQ/L (98-107); CREATININE FOR GFR 0.59 MG/DL (0.55-1.30); GLUCOSE, FASTING 83 MG/DL (70-100); SODIUM LEVEL 140 MEQ/L (136-145)
[2021-09-02 22:10] LABS: ERYTHROCYTE SEDIMENTATION RATE 15 mm/hr (0-20)
[2021-09-02 22:35] VITALS: BP 113/72
[2021-09-02] MEDS ORDERED: ISOVUE-370 76% 100ML VIAL As Ordered ONE (22:55)
[2021-09-03] MEDS ORDERED: BENZ200C70 PO (00:13)
[2021-09-03] MEDS ORDERED: LIDO2SOL17 PO (00:13)
== END 2021-09-03 00:20 | disposition home or self-care (01) ==
LOC: M ED 18:34
DX: U07.1 COVID-19 (principal); J02.9 Acute pharyngitis, unspecified; R05.9 Cough, unspecified; R06.02 Shortness of breath; R07.9 Chest pain, unspecified; I10 Essential (primary) hypertension; N80.9 Endometriosis, unspecified; Z91.040 Latex allergy status
CPT/HCPCS: 36415; 71045; 71275; 80048; 81001; 83605; 85025; 85652; 86140; 87040; 87086; 87486; 87581; 87633; 87798; 96361; 96374; 96375; 99284; J1885; J2765; Q9967

== ENCOUNTER → 2021-10-28 | Outpatient (CLI) | payer OTHER ==
[~2021-10-28] MED LIST changes: +ACET-683 PO; +BENZ200C70 PO; -LABE100T4 PO; +LABE100T6 PO; +LIDO2SOL17 PO
== END ==
LOC: M WHC 09:30
PROVIDERS: ATTEND Physician Assistant Medical
DX: N94.10 Unspecified dyspareunia (principal); R10.2 Pelvic and perineal pain

== ENCOUNTER → 2021-10-29 | Outpatient (CLI) | payer OTHER | LOC: M PLALAB 11:34 | PROVIDERS: ATTEND Specialist | DX: N92.6 Irregular menstruation, unspecified (principal) | CPT/HCPCS: 36415; 84702; G0463 ==